=== PATIENT | female | born 1935 | race Hispanic/Latino ===

== ENCOUNTER 2018-12-19 13:14 | Emergency (ER) | payer OTHER ==
--- NOTE | 2018-12-19 15:40 | EDPHYS ---
Physician Documentation [facility] Name: Jaimie Gutierrez Age: 83 yrs Sex: Female : 1935 Arrival Date: 12/19/2018 Time: 13:16 Bed 25 Private MD: Sonal Duncan ED Physician Popeye Arana HPI: 12/19 15:00 This 83 yrs old Female presents to ER via Wheelchair with complaints of Left pm1 Leg Pain. 15:00 The patient presents with pain. The complaints affect the left leg. Context: resulted pm1 from Movement, like bending, getting out of car that she can recall, the patient can fully bear weight, the patient is able to ambulate. Onset: The symptoms/episode began/occurred 6 month(s) ago. Modifying factors: The symptoms are alleviated by typically rest for a few days. the symptoms are aggravated by movement, when she has the pain. Associated signs and symptoms: Pertinent negatives calf tenderness, fever, numbness, swelling, tingling, warmth, weakness. Treatment prior to arrival includes: no previous treatment. Severity of symptoms: in the emergency department the symptoms have resolved, yesterday, a " 0" out of "10". The patient has experienced similar episodes in the past, multiple times. has discussed with Dr. Duncan and diagnosed with possible sciatica. Patient currently pain free. Had left leg pain radiating from hip to left big toe yesterday that resolved with rest. Typically the pain lasts for 3 days. Has been on and off for the past 6 months.. 15:00 No fall injury. pm1 Historical: - Allergies: 13:25 Codeine; tw2 13:25 PENICILLINS; tw2 - Home Meds: 13:25 Omeprazole Oral [Active]; atorvastatin 20 mg oral tab 1 tab once daily [Active]; tw2 lisinopril 10 mg Oral tab 1 tab once daily [Active]; meloxicam 7.5 mg oral tab 1 tab once daily [Active]; - PMHx: 13:25 High Cholesterol; tw2 - PSHx: 13:25 Hysterectomy; left knee surgery; tw2 - Immunization history:: Adult Immunizations. - Social history:: Smoking status: . - Ebola Screening: : Patient denies travel to an Ebola-affected area in the 21 days before illness onset. ROS: 15:00 Constitutional: Negative for fever, chills, and weight loss, Eyes: Negative for injury, pm1 pain, redness, and discharge, ENT: Negative for injury, pain, and discharge, Neck: Negative for injury, pain, and swelling, Cardiovascular: Negative for chest pain, palpitations, and edema, Respiratory: Negative for shortness of breath, cough, wheezing, and pleuritic chest pain, Abdomen/GI: Negative for abdominal pain, nausea, vomiting, diarrhea, and constipation, Back: Negative for injury and pain, : Negative for injury, bleeding, discharge, and swelling. 15:00 Skin: Negative for injury, rash, and discoloration, Neuro: Negative for headache, weakness, numbness, tingling, and seizure. 15:00 MS/extremity: Positive for pain, of the left leg, Negative for decreased range of motion, deformity, ecchymosis. Exam: 15:00 Constitutional: This is a well developed, well nourished patient who is awake, alert, pm1 and in no acute distress. Head/Face: Normocephalic, atraumatic. Eyes: Pupils equal round and reactive to light, extra-ocular motions intact. Lids and lashes normal. Conjunctiva and sclera are non-icteric and not injected. Cornea within normal limits. Periorbital areas with no swelling, redness, or edema. ENT: Nares patent. No nasal discharge, no septal abnormalities noted. Tympanic membranes are normal and external auditory canals are clear. Oropharynx with no redness, swelling, or masses, exudates, or evidence of obstruction, uvula midline. Mucous membranes moist. Neck: Trachea midline, no thyromegaly or masses palpated, and no cervical lymphadenopathy. Supple, full range of motion without nuchal rigidity, or vertebral point tenderness. No Meningismus. Chest/axilla: Normal chest wall appearance and motion. Nontender with no deformity. No lesions are appreciated. Cardiovascular: Regular rate and rhythm with a normal S1 and S2. No gallops, murmurs, or rubs. Normal PMI, no JVD. No pulse deficits. Respiratory: Lungs have equal breath sounds bilaterally, clear to auscultation and percussion. No rales, rhonchi or wheezes noted. No increased work of breathing, no retractions or nasal flaring. Abdomen/GI: Soft, non-tender, with normal bowel sounds. No distension or tympany. No guarding or rebound. No evidence of tenderness throughout. Back: No spinal tenderness. No costovertebral tenderness. Full range of motion. Skin: Warm, dry with normal turgor. Normal color with no rashes, no lesions, and no evidence of cellulitis. MS/ Extremity: Pulses equal, no cyanosis. Neurovascular intact. Full, normal range of motion. 15:00 Neuro: Orientation: is normal, Motor: is normal, moves all fours, Sensation: is normal, no obvious gross deficits. Vital Signs: 13:25 BP 137 / 48; Pulse 87; Resp 17; Temp 97.8(TE); Pulse Ox 95% on R/A; Weight 66.68 kg tw2 (R); Height 5 ft. 5 in. (165.10 cm); Pain 0/10; 15:00 BP 126 / 52; Pulse 68; Resp 18; Pulse Ox 100% on R/A; tl3 16:10 BP 122 / 60; Pulse 68; Resp 18; Pulse Ox 100% on R/A; tl3 13:25 Body Mass Index 24.46 (66.68 kg, 165.10 cm) tw2 13:25 a 10 when it hits tw2 MDM: 13:47 Patient medically screened. pm1 15:37 Data reviewed: vital signs. Data interpreted: Pulse oximetry: on room air is 95 %. pm1 Interpretation: normal. Counseling: I had a detailed discussion with the patient and/or guardian regarding: the historical points, exam findings, and any diagnostic results supporting the discharge/admit diagnosis, radiology results, the need for outpatient follow up, to return to the emergency department if symptoms worsen or persist or if there are any questions or concerns that arise at home. 12/19 14:59 Order name: Extremity Venous Uni Ltd ; Complete Time: 15:51 pm1 Administered Medications: No medications were administered Disposition: 12/20 07:15 Co-signature as Attending Physician, Popeye Arana MD Available for consultation at ps1 all times. . Disposition: 12/19/18 15:39 Discharged to Home. Impression: Pain in left leg. - Condition is Stable. - Discharge Instructions: Musculoskeletal Pain, Sciatica. - Medication Reconciliation Form, Thank You Letter form. - Follow up: Emergency Department; When: As needed; Reason: Worsening of condition. Follow up: Private Physician; When: 2 - 3 days; Reason: Recheck today's complaints, Continuance of care, Re-evaluation by your physician. - Problem is new. - Symptoms have improved. Signatures: Dispatcher [employer] EDMS Tam Suero ABALONE FISHERMAN ABALONE FISHERMAN pm1 Pretty Alba RN RN tw2 Popeye Arana MD MD ps1 Smita Walden RN RN tl3 Corrections: (The following items were deleted from the chart) 12/19 16:13 15:39 12/19/2018 15:39 Discharged to Home. Impression: Pain in left leg. Condition is tl3 Stable. Forms are Medication Reconciliation Form, Thank You Letter, Antibiotic Education, Prescription Opioid Use. Follow up: Emergency Department; When: As needed; Reason: Worsening of condition. Follow up: Private Physician; When: 2 - 3 days; Reason: Recheck today's complaints, Continuance of care, Re-evaluation by your physician. Problem is new. Symptoms have improved. pm1
--- NOTE | 2018-12-19 15:40 | ER ---
Nurse's Notes [facility] Name: Jaimie Gutierrez Age: 83 yrs Sex: Female : 1935 Arrival Date: 12/19/2018 Time: 13:16 Bed 25 Private MD: Sonal Duncan Diagnosis: Pain in left leg Presentation: 12/19 13:22 Presenting complaint: Patient states: i have pain in my LEFT leg and when it hits me it tw2 shoots all the way to my toes, last night my feet were cold and all night my legs were jerking. Transition of care: patient was not received from another setting of care. Onset of symptoms was December 19, 2018. Risk Assessment: Do you want to hurt yourself or someone else? Patient reports no desire to harm self or others. Initial Sepsis Screen: Does the patient meet any 2 criteria? No. Patient's initial sepsis screen is negative. Does the patient have a suspected source of infection? No. Patient's initial sepsis screen is negative. Care prior to arrival: None. 13:22 Method Of Arrival: Wheelchair tw2 13:22 Acuity: ALLISON 3 tw2 13:25 Presenting complaint: Patient states: and it hurts me into my groin area. tw2 Triage Assessment: 13:26 General: Appears in no apparent distress. well groomed, Behavior is calm, cooperative, tw2 appropriate for age. Pain: Complains of pain in left leg. Historical: - Allergies: 13:25 Codeine; tw2 13:25 PENICILLINS; tw2 - Home Meds: 13:25 Omeprazole Oral [Active]; atorvastatin 20 mg oral tab 1 tab once daily [Active]; tw2 lisinopril 10 mg Oral tab 1 tab once daily [Active]; meloxicam 7.5 mg oral tab 1 tab once daily [Active]; - PMHx: 13:25 High Cholesterol; tw2 - PSHx: 13:25 Hysterectomy; left knee surgery; tw2 - Immunization history:: Adult Immunizations. - Social history:: Smoking status: . - Ebola Screening: : Patient denies travel to an Ebola-affected area in the 21 days before illness onset. Screenin:00 Abuse screen: Denies threats or abuse. Nutritional screening: No deficits noted. tl3 Tuberculosis screening: No symptoms or risk factors identified. Fall Risk Ambulatory Aid- Crutches/Cane/Walker (15 pts). Gait- Impaired (20 pts.). Assessment: 13:30 General: Appears in no apparent distress. comfortable, slender, well groomed, well tl3 developed, well nourished, Behavior is calm, cooperative, appropriate for age. Pain: Complains of pain in left leg. Neuro: Level of Consciousness is awake, alert, obeys commands, Oriented to person, place, time, situation, Appropriate for age. Cardiovascular: Heart tones S1 S2 present Patient's skin is warm and dry. Rhythm is regular. Respiratory: Airway is patent Respiratory effort is even, unlabored, Respiratory pattern is regular, symmetrical, Breath sounds are clear bilaterally. GI: No signs and/or symptoms were reported involving the gastrointestinal system. : No signs and/or symptoms were reported regarding the genitourinary system. EENT: No signs and/or symptoms were reported regarding the EENT system. Derm: No signs and/or symptoms reported regarding the dermatologic system. Musculoskeletal: Reports pain in left leg. 15:00 Reassessment: No changes from previously documented assessment. Patient and/or family tl3 updated on plan of care and expected duration. Pain level reassessed. Patient is alert, oriented x 3, equal unlabored respirations, skin warm/dry/pink. no needs at this time. 16:10 Reassessment: Patient appears in no apparent distress at this time. No changes from tl3 previously documented assessment. Patient and/or family updated on plan of care and expected duration. Pain level reassessed. Patient is alert, oriented x 3, equal unlabored respirations, skin warm/dry/pink. pt up for discharge. Vital Signs: 13:25 BP 137 / 48; Pulse 87; Resp 17; Temp 97.8(TE); Pulse Ox 95% on R/A; Weight 66.68 kg tw2 (R); Height 5 ft. 5 in. (165.10 cm); Pain 0/10; 15:00 BP 126 / 52; Pulse 68; Resp 18; Pulse Ox 100% on R/A; tl3 16:10 BP 122 / 60; Pulse 68; Resp 18; Pulse Ox 100% on R/A; tl3 13:25 Body Mass Index 24.46 (66.68 kg, 165.10 cm) tw2 13:25 a 10 when it hits 2 ED Course: 13:16 Patient arrived in ED. ag5 13:17 Sonal Duncan MD is Private Physician. ag5 13:23 Triage completed. tw2 13:23 Arm band placed on. tw2 13:28 Smita Walden, RN is Primary Nurse. tl3 13:47 Tam Suero NP is PHCP. pm1 13:47 Popeye Arana MD is Attending Physician. pm1 14:00 Patient has correct armband on for positive identification. Placed in gown. Bed in low tl3 position. Call light in reach. Side rails up X 1. Adult w/ patient. Pulse ox on. NIBP on. Warm blanket given. 14:00 No provider procedures requiring assistance completed. Patient did not have IV access tl3 during this emergency room visit. 15:37 Extremity Venous Uni Ltd US In Process Unspecified. EDMS Administered Medications: No medications were administered Outcome: 14:00 Discharged to home ambulatory. tl3 14:00 Condition: stable 14:00 Discharge instructions given to patient, family, Instructed on discharge instructions, follow up and referral plans. Demonstrated understanding of instructions, follow-up care. 15:39 Discharge ordered by MD. pm1 16:13 Patient left the ED. tl3 Signatures: Dispatcher [employer] EDMS Tam Suero NP ART MANAGER pm1 Pretty Alba RN RN tw2 Smita Walden, RN RN tl3 Katie Rainey ag5
--- NOTE | 2018-12-19 15:47 | RAD REPORT ---
EXAM DESCRIPTION: US - Extremity Venous Uni Ltd - 12/19/2018 3:35 pm CLINICAL HISTORY: PAIN Leg swelling and edema. COMPARISON: Extremity Venous Uni Ltd dated 05/03/2016 FINDINGS: Left lower extremity venous system was interrogated with Doppler technique. Normal flow, c ompressibility and augmentation was noted. There is no DVT present. IMPRESSION: No evidence of left lower extremity deep venous thrombosis.
[2018-12-19 16:41] VITALS: TEMP 97.8
[2018-12-19 16:42] VITALS: O2SAT 100
[2018-12-19 16:43] VITALS: BP 122/60
== END 2018-12-19 16:13 | disposition home or self-care (01) ==
LOC: ER 13:14
DX: M79.605 Pain in left leg (principal); E78.00 Pure hypercholesterolemia, unspecified; Z88.0 Allergy status to penicillin; Z88.5 Allergy status to narcotic agent
CPT/HCPCS: 93971; 99283

== ENCOUNTER 2020-07-08 18:16 | Emergency (ER) | payer OTHER ==
[2020-07-08 18:52] LABS: Basophils % 0.6 % (0-1.3); Hematocrit 37.3 % (36.0-45.0); Lymphocytes % 22.9 % (15.3-44.8); MPV 8.9 fL (7.6-11.3); RBC Red Blood Cell Count 4.27 M/uL (3.86-4.86)
[2020-07-08 18:53] LABS: Protime INR 0.99
[2020-07-08 19:09] LABS: ALT/SGPT 28 U/L (12-78); AST/SGOT 19 U/L (15-37); Albumin 4.1 g/dL (3.4-5.0); Alkaline Phosphatase 112 U/L (45-117); BUN Blood Urea Nitrogen 14 mg/dL (7-18); Bicarbonate 27 mmol/L (21-32); Bilirubin Direct 0.1 mg/dL (0-0.2); Bilirubin Total 0.6 mg/dL (0.2-1.0); Glucose Level 122 mg/dL (74-106); Lipase 193 U/L (73-393); Magnesium 2.4 mg/dL (1.8-2.4); NT PRO-BNP 122 pg/mL (<450); Protein, Total 7.8 g/dL (6.4-8.2); Sodium Level 137 mmol/L (136-145); Troponin (Emerg Dept Use Only) < 0.02 ng/mL (0.0-0.045)
[2020-07-08] MEDS ORDERED: NA CHLORIDE 0.9% 250 ML ONE (19:30)
[2020-07-08] MEDS ORDERED: DICYCLOMINE HCL 10 MG CAP ONE (19:30)
[2020-07-08] MEDS ORDERED: METOCLOPRAMIDE 10 MG/2mL INJ ONE (19:30)
--- NOTE | 2020-07-08 19:37 | RAD REPORT ---
EXAM DESCRIPTION: RAD - Chest Single View - 07/08/2020 6:56 pm CLINICAL HISTORY: epigastric pain Chest pain. COMPARISON: Chest Single View dated 05/03/2016; CHEST SINGLE VIEW dated 07/30/2013; CHEST PA AND LAT 2 VIEW dated 05/17/2006 FINDINGS: Portable technique limits examination quality. The lungs are mildly emphysematous but grossly clear. The heart is normal in size. No displaced fract ures. IMPRESSION: No acute intrathoracic process suspected.
--- NOTE | 2020-07-08 19:55 | RAD REPORT ---
EXAM DESCRIPTION: US - Abdomen Exam Limited - 07/08/2020 7:47 pm CLINICAL HISTORY: ABD PAIN COMPARISON: Abdomen Exam Complete dated 11/19/2019 FINDINGS: The gallbladder demonstrates no gallstones. No pericholecystic fluid or gallbladder wall t hickening. The common bile duct is normal measuring 4 mm. The liver demonstrates no findings of intrahepatic biliary dilatation. IMPRESSION: Unremarkable examination.
--- NOTE | 2020-07-08 20:11 | RAD REPORT ---
EXAM DESCRIPTION: CT - Angio Aorta For Dissection - 07/08/2020 7:56 pm CLINICAL HISTORY: Chest pain radiating to the back. epigastric pain, back pain, lower abdominal pain COMPARISON: No comparisons TECHNIQUE: CT angiography of the aorta was performed with MIPs. All CT scans are performed using dose optimization technique as appropriate and may include automated exposure control or mA/KV adjustment according to patient size. FINDINGS: A left aortic arch is present with normal branching pattern of the great vessels.No acute aortic finding is seen such as aneurysm, penetrating ulcer or dissection. The celiac axis, SMA, ELSIE and renal arteries are patent. No evidence of pulmonary embolism. The lungs are mildly emphysematous but clear. Multiple liver cysts are noted.Small enhancing lesion is seen in the anterior right lobe measuring 10 mm, favored to represent a small hemangioma. No aggressive liver lesion or biliary dilatation. The s pleen is intact.The spleen, pancreas, adrenal glands and kidneys are within normal limits for arteria l phase imaging. No bowel obstruction, free fluid or abscess.Colonic diverticulosis is seen without diverticulitis.No pathologic enlarged lymphadenopathy identified. Mild lumbar degenerative changes. IMPRESSION: No acute aortic finding is demonstrated.
--- NOTE | 2020-07-08 22:50 | EDPHYS ---
Physician Documentation [facility] Name: Jaimie Gutierrez Age: 85 yrs Sex: Female : 1935 Arrival Date: 07/08/2020 Time: 18:18 Bed 17 Private MD: David Fam E ED Physician Jose Mendoza HPI: 07/08 18:49 This 85 yrs old Female presents to ER via Ambulatory with complaints of jmm Abdominal Pain. 18:49 The patient presents with abdominal pain in the epigastric area. Onset: The jmm symptoms/episode began/occurred gradually, 3 hour(s) ago. The symptoms do not radiate. Associated signs and symptoms: Pertinent negatives: nausea and vomiting, diarrhea. The symptoms are described as crampy. Modifying factors: The symptoms are alleviated by nothing, the symptoms are aggravated by nothing. The patient has not experienced similar symptoms in the past. This is an 85 year old female with a history of hlp, htn that presents to the ED with complaints of lower abdominal pain beginning in the lower abdominal pain which then radiated up to the epigastric region. Patient states this occurred after eating chicken. Patient deescribes the discomfort as a sense of fullness. Patient denies chest pain. Historical: - Allergies: 18:26 Codeine; ca1 18:26 PENICILLINS; ca1 - PMHx: 18:26 High Cholesterol; ca1 18:26 Hypertension; ca1 - PSHx: 18:26 Hysterectomy; ca1 - Immunization history:: Adult Immunizations up to date. - Social history:: Smoking status: Patient denies any tobacco usage or history of. ROS: 18:49 Constitutional: Negative for fever, chills, and weight loss, Cardiovascular: Negative jmm for chest pain, palpitations, and edema, Respiratory: Negative for shortness of breath, cough, wheezing, and pleuritic chest pain. 18:49 Abdomen/GI: Positive for abdominal pain. 18:49 All other systems are negative. Exam: 18:49 Constitutional: This is a well developed, well nourished patient who is awake, alert, jmm and in no acute distress. Head/Face: atraumatic. Eyes: EOMI, no conjunctival erythema appreciated ENT: Moist Mucus Membranes Neck: Trachea midline, Supple Chest/axilla: Normal chest wall appearance and motion. Cardiovascular: Regular rate and rhythm. No edema appreciated Respiratory: Normal respirations, no respiratory distress appreciated 18:49 Back: Normal ROM Skin: General appearance color normal MS/ Extremity: Moves all extremities, no obvious deformities appreciated, no edema noted to the lower extremities Neuro: Awake and alert, normal gait Psych: Behavior is normal, Mood is normal, Patient is cooperative and pleasant 18:49 Abdomen/GI: Inspection: abdomen appears normal, Bowel sounds: normal, Palpation: soft, mild abdominal tenderness, in the epigastric area. Vital Signs: 18:23 BP 188 / 71; Pulse 67; Resp 16 S; Temp 97.7; Pulse Ox 100% on R/A; Weight 67.59 kg (R); ca1 Height 5 ft. 5 in. (165.10 cm); Pain 10/10; 19:30 BP 167 / 77; Pulse 61; Resp 16; Pulse Ox 100% on R/A; vc 20:30 BP 145 / 48; Pulse 68; Resp 20; Pulse Ox 99% on R/A; vc 21:30 BP 132 / 52; Pulse 78; Resp 18; Pulse Ox 97% on R/A; vc 18:23 Body Mass Index 24.79 (67.59 kg, 165.10 cm) ca1 MDM: 18:40 Patient medically screened. clau 22:47 Data reviewed: vital signs, nurses notes. Counseling: I had a detailed discussion with mick the patient and/or guardian regarding: the historical points, exam findings, and any diagnostic results supporting the discharge/admit diagnosis, lab results, radiology results, the need for outpatient follow up, to return to the emergency department if symptoms worsen or persist or if there are any questions or concerns that arise at home. ED course: Patient is alert and non toxic in appearance in the ED. Patient advised to follow up with pcp for reexamination. Patient is otherwise given strict return precautions. Patient understood and agrees with the plan of care. . 07/08 18:28 Order name: Basic Metabolic Panel; Complete Time: : [facility] 07/08 18:28 Order name: CBC with Diff; Complete Time: 18: [facility] 07/08 18:28 Order name: LFT's; Complete Time: : [facility] 07/08 18:28 Order name: Magnesium; Complete Time: : [facility] 07/08 18:28 Order name: NT PRO-BNP; Complete Time: 19:09 [facility] 07/08 18:28 Order name: PT-INR; Complete Time: 18:55 [facility] 07/08 18:28 Order name: Troponin (emerg Dept Use Only); Complete Time: 19:09 [facility] 07/08 18:28 Order name: XRAY Chest (1 view); Complete Time: 19:51 [facility] 07/08 18:28 Order name: Lipase; Complete Time: 19:09 [facility] 07/08 19:11 Order name: US Abdomen Limited; Complete Time: 20:03 [facility] 07/08 19:12 Order name: CT Aorta for Dissection; Complete Time: 20:28 [facility] 07/08 21:35 Order name: Troponin (emerg Dept Use Only); Complete Time: 22:47 [facility] 07/08 18:28 Order name: EKG; Complete Time: 18:29 [facility] 07/08 18:28 Order name: Cardiac monitoring; Complete Time: 19:25 [facility] 07/08 18:28 Order name: EKG - Nurse/Tech; Complete Time: 19:34 [facility] 07/08 18:28 Order name: IV Saline Lock; Complete Time: 18:37 [facility] 07/08 18:28 Order name: Labs collected and sent; Complete Time: 18:36 [facility] 07/08 18:28 Order name: O2 Per Protocol; Complete Time: 18:37 [facility] 07/08 18:28 Order name: O2 Sat Monitoring; Complete Time: 18:37 jm Administered Medications: 19:17 CANCELLED (Duplicate Order): Bentyl 20 mg IM once [facility] 19:24 Drug: NS 0.9% 250 ml Route: IV; Rate: bolus; Site: right antecubital; vc 20:00 Follow up: IV Status: Completed infusion; IV Intake: 250ml vc 19:24 Drug: Bentyl 10 mg Route: PO; vc 22:48 Follow up: Response: No adverse reaction; Pain is decreased vc 19:25 Drug: Reglan 10 mg Route: IVP; Site: right antecubital; vc 22:48 Follow up: Response: No adverse reaction; Nausea is decreased vc Disposition: 07/09 07:36 Co-signature as Attending Physician, Jose Mendoza MD. rn Disposition: 07/08/20 22:49 Discharged to Home. Impression: Epigastric pain. - Condition is Stable. - Discharge Instructions: Abdominal Pain, Adult. - Prescriptions for Bentyl 20 mg Oral Tablet - take 2 tablet by ORAL route every 6 hours As needed; 40 tablet. Pepcid 20 mg Oral Tablet - take 1 tablet by ORAL route every 12 hours for 10 days; 20 tablet. - Medication Reconciliation Form, Thank You Letter, Antibiotic Education, Prescription Opioid Use form. - Follow up: David Fam MD; When: 2 - 3 days; Reason: Recheck today's complaints, Continuance of care, Re-evaluation by your physician. Signatures: Dispatcher [employer] EDMS James Antunez PA PA jmm Nieto, Roman, MD MD rn John, Smita, RN RN ca1 Irene Myrick RN RN vc Corrections: (The following items were deleted from the chart) 07/08 19:17 19:16 Bentyl 20 mg IM once ordered. mick barton 23:03 22:49 07/08/2020 22:49 Discharged to Home. Impression: Epigastric pain. Condition is vc Stable. Forms are Medication Reconciliation Form, Thank You Letter, Antibiotic Education, Prescription Opioid Use. Follow up: David Fam; When: 2 - 3 days; Reason: Recheck today's complaints, Continuance of care, Re-evaluation by your physician. mick
--- NOTE | 2020-07-08 22:50 | ER ---
Nurse's Notes [facility] Name: Jaimie Gutierrez Age: 85 yrs Sex: Female : 1935 Arrival Date: 07/08/2020 Time: 18:18 Bed 17 Private MD: David Fam E Diagnosis: Epigastric pain Presentation: 07/08 18:23 Chief complaint: Patient states: Upper abdominal pain started at [id number] today. ca1 Denies N/V. States, " I feel like I needed to burp but can't". Coronavirus screen: Client denies travel out of the [place] in the last 14 days. At this time, the client does not indicate any symptoms associated with coronavirus-19. Ebola Screen: Patient negative for fever greater than or equal to 101.5 degrees Fahrenheit, and additional compatible Ebola Virus Disease symptoms Patient denies exposure to infectious person. Patient denies travel to an Ebola-affected area in the 21 days before illness onset. No symptoms or risks identified at this time. Initial Sepsis Screen: Does the patient meet any 2 criteria? No. Patient's initial sepsis screen is negative. Does the patient have a suspected source of infection? No. Patient's initial sepsis screen is negative. Risk Assessment: Do you want to hurt yourself or someone else? Patient reports no desire to harm self or others. Onset of symptoms was July 08, 2020. 18:23 Method Of Arrival: Ambulatory ca1 18:23 Acuity: ALLISON 3 ca1 Triage Assessment: 19:00 General: Appears in no apparent distress. uncomfortable, Behavior is cooperative, vc appropriate for age, anxious. Pain: Denies pain. Pain: Denies pain. Complains of pain in epigastric area Pain does not radiate. Pain currently is 10 out of 10 on a pain scale. Quality of pain is described as sharp, stabbing, Pain began gradually, 1 hour ago. Is continuous. GI: Reports upper abdominal pain, nausea. Historical: - Allergies: 18:26 Codeine; ca1 18:26 PENICILLINS; ca1 - PMHx: 18:26 High Cholesterol; ca1 18:26 Hypertension; ca1 - PSHx: 18:26 Hysterectomy; ca1 - Immunization history:: Adult Immunizations up to date. - Social history:: Smoking status: Patient denies any tobacco usage or history of. Screenin:00 Abuse screen: Denies threats or abuse. Nutritional screening: No deficits noted. vc Tuberculosis screening: No symptoms or risk factors identified. Fall Risk None identified. Assessment: 19:00 General: Appears in no apparent distress. uncomfortable, Behavior is cooperative, vc appropriate for age, anxious. Pain: Complains of pain in epigastric area. Neuro: Level of Consciousness is awake, alert, obeys commands, Oriented to person, place, time, situation, Appropriate for age. Cardiovascular: Capillary refill < 3 seconds Patient's skin is warm and dry. Respiratory: Reports shortness of breath at rest Airway is patent Respiratory effort is even, unlabored, Respiratory pattern is regular, symmetrical. : No signs and/or symptoms were reported regarding the genitourinary system. Derm: Skin is intact, is healthy with good turgor, Skin temperature is warm. 20:00 GI: Bowel sounds present X 4 quads. Abd is soft Abdomen is tender to palpation. vc 20:00 Reassessment: Patient appears in no apparent distress at this time. Patient and/or vc family updated on plan of care and expected duration. Pain level reassessed. Patient states symptoms have not improved. 21:00 Reassessment: Patient appears in no apparent distress at this time. Patient and/or vc family updated on plan of care and expected duration. Pain level reassessed. Patient is alert, oriented x 3, equal unlabored respirations, skin warm/dry/pink. Patient states symptoms have improved. 21:45 Reassessment: pt family contacted at [phone] for updated, pt family reports sg understanding, awaiting pt to be dispo to home. 22:00 Reassessment: Patient appears in no apparent distress at this time. Patient and/or vc family updated on plan of care and expected duration. Pain level reassessed. Patient is alert, oriented x 3, equal unlabored respirations, skin warm/dry/pink. Patient states feeling better. Patient states symptoms have improved. 22:55 Reassessment: Patient appears in no apparent distress at this time. Patient and/or vc family updated on plan of care and expected duration. Pain level reassessed. Patient is alert, oriented x 3, equal unlabored respirations, skin warm/dry/pink. Patient denies pain at this time. Patient states feeling better. Patient states symptoms have improved. Vital Signs: 18:23 BP 188 / 71; Pulse 67; Resp 16 S; Temp 97.7; Pulse Ox 100% on R/A; Weight 67.59 kg (R); ca1 Height 5 ft. 5 in. (165.10 cm); Pain 10/10; 19:30 BP 167 / 77; Pulse 61; Resp 16; Pulse Ox 100% on R/A; vc 20:30 BP 145 / 48; Pulse 68; Resp 20; Pulse Ox 99% on R/A; vc 21:30 BP 132 / 52; Pulse 78; Resp 18; Pulse Ox 97% on R/A; vc 18:23 Body Mass Index 24.79 (67.59 kg, 165.10 cm) ca1 ED Course: 18:18 Patient arrived in ED. ag5 18:18 David Fam MD is Private Physician. ag5 18:25 Triage completed. ca1 18:26 Arm band placed on right wrist. ca1 18:27 James Antunez PA is PHCP. jmm 18:27 Jose Mendoza MD is Attending Physician. jmm 18:34 No provider procedures requiring assistance completed. Initial lab(s) drawn, by ak, ca1 sent to lab. Inserted saline lock: 20 gauge in right antecubital area, using aseptic technique. Blood collected. 18:56 XRAY Chest (1 view) In Process Unspecified. EDMS 19:00 Patient has correct armband on for positive identification. Placed in gown. Bed in low vc position. Call light in reach. internet database specialist on. Pulse ox on. NIBP on. 19:12 Irene Myrick, RN is Primary Nurse. vc 19:47 US Abdomen Limited In Process Unspecified. EDMS 19:56 CT Aorta for Dissection In Process Unspecified. EDMS 22:48 David Fam MD is Referral Physician. jmm 23:02 IV discontinued, intact, bleeding controlled, No redness/swelling at site. Pressure vc dressing applied. Administered Medications: 19:17 CANCELLED (Duplicate Order): Bentyl 20 mg IM once jmm 19:24 Drug: NS 0.9% 250 ml Route: IV; Rate: bolus; Site: right antecubital; vc 20:00 Follow up: IV Status: Completed infusion; IV Intake: 250ml vc 19:24 Drug: Bentyl 10 mg Route: PO; vc 22:48 Follow up: Response: No adverse reaction; Pain is decreased vc 19:25 Drug: Reglan 10 mg Route: IVP; Site: right antecubital; vc 22:48 Follow up: Response: No adverse reaction; Nausea is decreased vc Intake: 20:00 IV: 250ml; Total: 250ml. vc Outcome: 22:49 Discharge ordered by . mick 23:02 Discharged to home ambulatory. vc 23:02 Condition: good 23:02 Discharge instructions given to patient, Instructed on discharge instructions, follow up and referral plans. no drinking with medication, no driving heavy equipment, medication usage, Demonstrated understanding of instructions, follow-up care, medications, Prescriptions given X 2. 23:03 Patient left the ED. vc Signatures: Dispatcher [employer] EDMS Camilo Main RN RN James James PA PA jmm Acob, Cheryl, RN RN ca1 Katie Rainey 5 Irene Myrick RN RN vc
[2020-07-08 23:07] VITALS: TEMP 97.7
[2020-07-08 23:11] VITALS: BP 132/52; O2SAT 97
--- NOTE | 2020-07-09 05:56 | EKG ---
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
== END 2020-07-08 23:03 | disposition home or self-care (01) ==
LOC: ER 18:16
DX: R10.13 Epigastric pain (principal); I10 Essential (primary) hypertension; Z88.0 Allergy status to penicillin; Z88.5 Allergy status to narcotic agent
CPT/HCPCS: 96365; 93005; 85025; 80048; 36415; 83735; 85610; 80076; 84484 ×2; 83690; 83880; 71275; 74175; 71045; 76705; 96375; 99284; Q9967; J2765; J7050

== ENCOUNTER 2022-08-19 10:00 | Emergency (ER) | payer MEDICARE, OTHER ==
--- OUTSIDE RECORDS SUMMARY | 2022-08-19 10:04 | XMS REPORT | Continuity of Care Document ---
:1935 Author Organization [facility] t Address [address] [place]. [address] [place] [id number] Care Team Providers Name Role Phone David Fam Attending Clinician Unavailable Josefa-Mbayo_A_AH Attending Clinician Unavailable Josefa-Mbayo_A_AH Admitting Clinician Unavailable Payers Payer Name Policy Type Policy Number Effective Date Expiration Date S [facility] [id number] 2021 (MEDICARE 00:00:00 REPLACEMENT HMO) [employer] [place] - [id number] [facility] (MEDICARE 00:00:00 REPLACEMENT/[employer] - HMO) Problems This patient has no known problems. Allergies, Adverse Reactions, Alerts This patient has no known allergies or adverse reactions. Medications This patient has no known medications. Procedures This patient has no known procedures. Encounters Start End Encounter Admission Attending Care Care Encounter Source Date/Time Date/Time Type Type Clinicians Facility Department ID 2022-05-10 Outpatient Fam, [facility] [id number] Common 14:03:01 David [id number] [facility] 2022-05-25 2022-05-25 Outpatient DMG DMG [id number] [facility] 2022-05-13 2022-05-13 Outpatient DMG DMG [id number] [facility] 03:15:00 03:15:00 [facility] l Group 2021-12-31 2021-12-31 Outpatient DMG DMG [id number] [facility] 09:01:00 09:01:00 Med[facility] l Group 2021-12-27 2021-12-27 Outpatient DMG DMG [id number] [facility] 09:01:00 09:01:00 Med[facility] l Group 2019-12-18 2019-12-18 Outpatient Josefa-Mbayo VFP VFP [phone] [facility] 07:24:00 07:24:00 _A_AH [id number] Family Practic e 2019-12-18 2019-12-18 Outpatient Josefa-Mbayo VFP VFP [phone] [facility] 07:24:00 07:24:00 _A_AH [id number] Family Practic e 2019-12-18 2019-12-18 Outpatient Josefa-Mbayo VFP VFP [phone] [facility] 07:24:00 07:24:00 _A_AH [id number] Family Practic e 2019-12-18 2019-12-18 Outpatient Josefa-Mbayo VFP VFP [phone] [facility] 07:24:00 07:24:00 _A_AH [id number] Family Practic e Results This patient has no known results.
[2022-08-19] MEDS ORDERED: NA CHLORIDE 0.9% 1,000 ML ONE (10:57)
[2022-08-19 11:23] LABS: Absolute Lymphocytes (CBC) 0.9 K/uL (0.7-4.9); Hematocrit 34.9 % (36.0-45.0); Lymphocytes % 10.7 % (15.3-44.8); MCV 88.9 fL (80-100); MPV 7.8 fL (7.6-11.3); RBC Red Blood Cell Count 3.92 M/uL (3.86-4.86)
[2022-08-19 11:28] LABS: Protime INR 1.04
[2022-08-19 11:58] LABS: Bilirubin Direct 0.1 mg/dL (0-0.2); Bilirubin Total 0.4 mg/dL (0.2-1.0); Magnesium 2.2 mg/dL (1.8-2.4); Potassium 3.8 mmol/L (3.5-5.1); Protein, Total 7.6 g/dL (6.4-8.2); Troponin High Sensitivity 7.8 pg/mL (<58.9)
[2022-08-19 12:17] LABS: Urine Blood 2+ (Negative); Urine Glucose Negative (Negative); Urine Protein Negative (Negative); Urine Specific Gravity 1.025 (1.005-1.030); Urine pH 5.5 (5.0-7.0)
[2022-08-19 12:23] LABS: Urine Bacteria <20 /HPF (<20); Urine Mucus Slight /HPF (None Seen); Urine RBC <5 /HPF (None Seen)
--- NOTE | 2022-08-19 12:57 | RAD REPORT ---
EXAM DESCRIPTION: RAD - Chest Single View - 08/19/2022 11:27 am CLINICAL HISTORY: COUGH Chest pain. COMPARISON: Chest Single View dated 07/08/2020; Chest Single View dated 05/03/2016; CHEST SINGLE VIEW da liza 07/30/2013; CHEST PA AND LAT 2 VIEW dated 05/17/2006 FINDINGS: Portable technique limits examination quality. The lungs are emphysematous but grossly clear. The heart is normal in size. No displaced fractures. IMPRESSION: COPD.
[2022-08-19] MEDS ORDERED: levoFLOXacin 250 MG TAB ONE (13:06)
[2022-08-19] MEDS ORDERED: CEFTRIAXONE 1000 MG/VIAL ONE (13:07)
[2022-08-19] MEDS ORDERED: NA CHLORIDE 0.9% 50 ML IV ONE ×2 (13:07→15:18)
--- NOTE | 2022-08-19 13:31 | RAD REPORT ---
EXAM DESCRIPTION: CT - Head Brain Wo Cont - 08/19/2022 1:20 pm CLINICAL HISTORY: HEADACHE COMPARISON: Stone Protocol dated 08/19/2022 TECHNIQUE: Axial 5 mm thick images of the head were obtained without IV contrast. All CT scans are performed using dose optimization technique as appropriate and may include automated exposure control or mA/KV adjustment according to patient size. FINDINGS: No intracranial hemorrhage, mass, edema or shift of mid-line structures. No acute infarcti on changes seen. No abnormal extra-axial fluid collections. Atrophy is present, mild for age and prim arily bifrontal. Ventricles are in proportion to the volume loss. Chronic ischemic changes mild. Dens e arterial tree calcifications are present. Mastoid air cells and visualized portions of the paranasal sinuses are clear. No acute bony findings. IMPRESSION: Negative non-contrast CT head examination for acute finding.
--- NOTE | 2022-08-19 13:37 | RAD REPORT ---
EXAM DESCRIPTION: CT - Stone Protocol - 08/19/2022 1:20 pm CLINICAL HISTORY: Flank pain, kidney stone suspected COMPARISON: Abdomen Pelvis W Contrast dated 05/03/2016 TECHNIQUE: Axial 3 mm thick images were obtained without oral or IV contrast. The yodji-ny-efts span s the entirety of the system including uppermost abdomen and lung bases. All CT scans are performed using dose optimization technique as appropriate and may include automated exposure control or mA/KV adjustment according to patient size. FINDINGS: No hydronephrosis is present and no obstructing ureteral calculi. No nonobstructing renal calculi. No suspicious renal masses. Isodense masses and pyelonephritis are not excluded on a stone p rotocol CT scan. No significant adrenal finding. No urinary bladder suspicious finding. Several round fluid attenuation masses are present in the left lobe and anterior right lobe. These carballo ve all shown enlargement since 2016 but continue to show benign simple cyst characteristics. A worris ome liver finding is not seen. Pancreas and spleen without suspicious finding. No gallbladder or bili pascual tree abnormality identified. No suspicious bowel findings. Fluid, air and fluid are present in the stomach pooling in the fundus. Elongated appendix is normal. An active GI process is not seen. Rectum is dilated to 6 cm by stool. P elvic floor laxity is present. No hernia, mass or bulky lymphadenopathy noted. No free air, free fluid or inflammatory stranding. Disc and bone degenerative changes are present. L4-5 central spinal stenosis present from facet hyper trophy, ligamentous thickening disc bulge and endplate spurring. L3-4 is borderline stenotic due to s imilar processes. IMPRESSION: No hydronephrosis, obstructing calculus or acute finding identified. Isodense masses and pyelonephritis are not excluded on stone protocol technique. Additional nonacute findings are detailed in the body of the report.
[2022-08-19] MEDS ORDERED: ASPIRIN 81 MG CHEWABLE TABLET ONE (15:08)
[2022-08-19] MEDS ORDERED: FOLIC ACID 5 MG/ML VIAL ONE (15:13)
--- NOTE | 2022-08-19 15:37 | EDPHYS ---
Physician Documentation [facility] Name: Jaimie Gutierrez Age: 87 yrs Sex: Female : 1935 Arrival Date: 08/19/2022 Time: 10:02 Bed 13 Private MD: David Fam E ED Physician Micha Haney HPI: 08/19 14:42 This 87 yrs old Female presents to ER via Ambulatory with complaints of yaneth Doesn't Feel Right, shaky after flu shot yesterday. 14:42 The patient complains of pain to the top of head, forehead, left frontal area and left yaneth side of the back of head. Historical: - Allergies: 10:31 PENICILLINS; iw 10:31 Codeine; iw - PMHx: 10:31 High Cholesterol; Hypertension; iw - Immunization history:: Adult Immunizations up to date. - Social history:: Smoking status: Patient denies any tobacco usage or history of. ROS: 15:17 Constitutional: Negative for fever, chills, and weight loss, Eyes: Negative for injury, yaneth pain, redness, and discharge, ENT: Negative for injury, pain, and discharge, Neck: Negative for injury, pain, and swelling, Cardiovascular: Negative for chest pain, palpitations, and edema, Respiratory: Negative for shortness of breath, cough, wheezing, and pleuritic chest pain, Abdomen/GI: Negative for abdominal pain, nausea, vomiting, diarrhea, and constipation, Back: Negative for injury and pain, : Negative for injury, bleeding, discharge, and swelling, MS/Extremity: Negative for injury and deformity, Skin: Negative for injury, rash, and discoloration, Psych: Negative for depression, anxiety, suicide ideation, homicidal ideation, and hallucinations, Allergy/Immunology: Negative for hives, rash, and allergies, Endocrine: Negative for neck swelling, polydipsia, polyuria, polyphagia, and marked weight changes, Hematologic/Lymphatic: Negative for swollen nodes, abnormal bleeding, and unusual bruising. 15:17 Neuro: Positive for dizziness, weakness, shaking all over, both arms. Exam: 15:17 Constitutional: This is a well developed, well nourished patient who is awake, alert, yaneth and in no acute distress. Head/Face: Normocephalic, atraumatic. Eyes: Pupils equal round and reactive to light, extra-ocular motions intact. Lids and lashes normal. Conjunctiva and sclera are non-icteric and not injected. Cornea within normal limits. Periorbital areas with no swelling, redness, or edema. ENT: Nares patent. No nasal discharge, no septal abnormalities noted. Tympanic membranes are normal and external auditory canals are clear. Oropharynx with no redness, swelling, or masses, exudates, or evidence of obstruction, uvula midline. Mucous membranes moist. Neck: Trachea midline, no thyromegaly or masses palpated, and no cervical lymphadenopathy. Supple, full range of motion without nuchal rigidity, or vertebral point tenderness. No Meningismus. Chest/axilla: Normal chest wall appearance and motion. Nontender with no deformity. No lesions are appreciated. Cardiovascular: Regular rate and rhythm with a normal S1 and S2. No gallops, murmurs, or rubs. Normal PMI, no JVD. No pulse deficits. Respiratory: Lungs have equal breath sounds bilaterally, clear to auscultation and percussion. No rales, rhonchi or wheezes noted. No increased work of breathing, no retractions or nasal flaring. Abdomen/GI: Soft, non-tender, with normal bowel sounds. No distension or tympany. No guarding or rebound. No evidence of tenderness throughout. Back: No spinal tenderness. No costovertebral tenderness. Full range of motion. Skin: Warm, dry with normal turgor. Normal color with no rashes, no lesions, and no evidence of cellulitis. MS/ Extremity: Pulses equal, no cyanosis. Neurovascular intact. Full, normal range of motion. Neuro: Awake and alert, GCS 15, oriented to person, place, time, and situation. Cranial nerves II-XII grossly intact. Motor strength 5/5 in all extremities. Sensory grossly intact. Cerebellar exam normal. Normal gait. Psych: Awake, alert, with orientation to person, place and time. Behavior, mood, and affect are within normal limits. 15:17 ECG was reviewed by the Attending Physician. 15:37 Musculoskeletal/extremity: DVT Exam: No signs of deep vein thrombosis. no pain, no yaneth swelling, no tenderness, negative Homans' sign noted on exam, no appreciated bluish discoloration, no erythema, no increased warmth. Vital Signs: 10:28 BP 173 / 62; Pulse 74; Resp 16; Temp 98.8; Pulse Ox 100% ; Weight 63.5 kg; Height 5 ft. iw 5 in. (165.10 cm); Pain 8/10; 11:30 BP 157 / 48; Pulse 60; Resp 16; Pulse Ox 100% ; db 12:00 BP 147 / 47; Pulse 57; Resp 16; Pulse Ox 100% on R/A; db 13:04 BP 134 / 58; Pulse 60; Resp 16; Pulse Ox 100% ; db 16:07 BP 152 / 51; Pulse 78; Resp 16; Pulse Ox 98% on R/A; iw 10:28 Body Mass Index 23.30 (63.50 kg, 165.10 cm) iw NIH Stroke Scale Scores: 15:17 NIHSS Score: 0 yaneth Rosanna Coma Score: 15:20 Eye Response: spontaneous(4). Verbal Response: oriented(5). Motor Response: obeys yaneth commands(6). Total: 15. MDM: 10:37 Patient medically screened. yaneth 15:20 Differential diagnosis: cluster headache, cerebral vascular accident, hypertensive yaneth headache, hyponatremia, neoplasm, sinusitis, subarachnoid bleed, subdural hematoma, temporal arteritis, tension headache, traumatic injuries, trigeminal neuralgia, vasomotor headache. Differential Diagnosis altered mental status. Differential diagnosis: cardiac arrhythmia, CVA, generalized weakness, head injury, hypovolemia, idiopathic dizziness, near-syncope, TIA, vertigo. Data reviewed: vital signs, nurses notes, lab test result(s), EKG, radiologic studies, CT scan, plain films. Data interpreted: nurse monitoring: rate is 60 beats/min, rhythm is regular, Pulse oximetry: on room air is 100 %. Test interpretation: by ED physician or midlevel provider: ECG, plain radiologic studies. Counseling: I had a detailed discussion with the patient and/or guardian regarding: the historical points, exam findings, and any diagnostic results supporting the discharge/admit diagnosis, lab results, radiology results, the need for outpatient follow up, for definitive care, a family practitioner, a neurologist. 08/19 10:40 Order name: Basic Metabolic Panel; Complete Time: 12:46 yaneth 08/19 10:40 Order name: CBC with Diff; Complete Time: 12:46 yaneth 08/19 10:40 Order name: LFT's; Complete Time: 12:46 [facility] 08/19 10:40 Order name: Magnesium; Complete Time: 12:46 [facility] 08/19 10:40 Order name: NT PRO-BNP; Complete Time: 12:46 [facility] 08/19 10:40 Order name: PT-INR; Complete Time: 12:46 [facility] 08/19 10:40 Order name: Troponin HS; Complete Time: 12:46 08/19 10:40 Order name: XRAY Chest (1 view); Complete Time: 14:20 [facility] 08/19 10:40 Order name: Urine Microscopic Only; Complete Time: 12:46 [facility] 08/19 10:40 Order name: Lipase; Complete Time: 12:46 [facility] 08/19 12:17 Order name: Urine Dipstick-Ancillary; Complete Time: 12:46 [facility]IN 08/19 12:50 Order name: CT Stone Protocol [facility] 08/19 12:50 Order name: Urine Culture yaneth 08/19 13:53 Order name: Urine Culture [facility] 08/19 10:40 Order name: EKG; Complete Time: 10:41 [facility] 08/19 10:40 Order name: Cardiac monitoring; Complete Time: 11:22 [facility] 08/19 10:40 Order name: EKG - Nurse/Tech; Complete Time: 11:22 [facility] 08/19 10:40 Order name: IV Saline Lock; Complete Time: 11:22 [facility] 08/19 10:40 Order name: Labs collected and sent; Complete Time: 11:22 [facility] 08/19 10:40 Order name: O2 Per Protocol; Complete Time: 11:22 [facility] 08/19 10:40 Order name: O2 Sat Monitoring; Complete Time: 11:22 [facility] 08/19 10:40 Order name: Urine Dipstick-Ancillary (obtain specimen); Complete Time: 13:34 [facility] 08/19 13:31 Order name: CT; Complete Time: 14:20 EDMS 08/19 13:39 Order name: CT; Complete Time: 14:20 EDMS EC:17 Rate is 64 beats/min. Rhythm is regular. QRS [place] is Normal. [place] interval is normal. QRS yaneth interval is normal. QT interval is normal. No Q waves. T waves are Normal. No ST changes noted. Clinical impression: NSR w/ Non-specific ST/T Changes and No evidence of ischemia. Interpreted by me. Reviewed by me. Administered Medications: 11:20 Drug: NS 0.9% 500 ml Route: IV; Rate: bolus; Site: right antecubital; db 11:58 Follow up: IV Status: Completed infusion; IV Intake: 500ml db 11:59 Follow up: Response: No adverse reaction db 13:20 Follow up: Response: No adverse reaction db 11:58 Drug: NS 0.9% 1000 ml Route: IV; Rate: 125 ml/hr; Site: right antecubital; db 16:10 Follow up: IV Status: Order to discontinue infusion iw 13:30 Drug: Rocephin (cefTRIAXone) 1 grams Route: IV; Rate: per protocol; Site: right db antecubital; 14:05 Follow up: Response: No adverse reaction; IV Status: Completed infusion; IV Intake: 50mldb 13:30 Drug: LevOfloxacin 500 mg Route: PO; db 14:05 Follow up: Response: No adverse reaction db 15:21 Drug: Aspirin Chewable Tablet 324 mg Route: PO; db 16:09 Follow up: Response: No adverse reaction iw 15:21 Drug: foLIC Acid 1 mg Route: IVPB; Site: right antecubital; db 16:09 Follow up: IV Status: Completed infusion iw Disposition Summary: 08/19/22 15:36 Discharge Ordered Location: Home yaneth Problem: new yaneth Symptoms: have improved yaneth Condition: Stable yaneth Diagnosis - Weakness yaneth - UTI/ Urinary tract infection, site not specified yaneth - Dysuria yaneth - Adverse effect of other viral vaccines, initial encounter yaneth Followup: yaneth - With: David Fam MD - When: 2 - 3 days - Reason: Recheck today's complaints, Continuance of care, Re-evaluation by your physician Followup: yaneth - With: Mook Woods MD - When: 2 - 3 days - Reason: Recheck today's complaints, Re-evaluation by your physician Discharge Instructions: - Discharge Summary Sheet yaneth - Dysuria yaneth - Urinary Tract Infection, Adult yaneth - Weakness yaneth - Fatigue yaneth - Urinary Tract Infection, Adult, Sins-[id number]-[id number] yaneth - Weakness, Dupy-sz-Tgcw yaneth - Aspirin and Your Heart yaneth Forms: - Medication Reconciliation Form yaneth - Thank You Letter yaneth - Antibiotic Education yaneth - Prescription Opioid Use yaneth Prescriptions: - Folic Acid 1 mg Oral Tablet - take 1 tablet by ORAL route once daily; 30 tablet; Refills: 0, Product yaneth Selection Permitted - levofloxacin 250 mg Oral Tablet - take 1 tablet by ORAL route once daily; 7 tablet; Refills: 0, Product Selection [facility] Permitted - Meclizine 25 mg Oral Tablet - take 1 tablet by ORAL route every 8 hours As needed; 30 tablet; Refills: 0, [facility] Product Selection Permitted NIH Stroke Scale - NIH Stroke Score Date: 08/19/2022 Time: 15:17 Total Score = 0 1a. Level of Consciousness (LOC) - 0(Alert) 1b. Level of Consciousness (LOC) (Month \T\ Age) - 0(Both) 1c. LOC Commands (Open \T\ Closes Eyes/Finishing And Shipping Supervisor) - 0(Both) 2. Best Gaze (Lateral Gaze Paresis) - 0(Normal) 3. Visual Field Loss - 0(No visual loss) 4. Facial Palsy - 0(Normal) 5a. Left Arm: Motor (10-second hold) - 0(No drift) 5b. Right Arm: Motor (10-second hold) - 0(No drift) 6a. Left Leg: Motor (5-second hold - always test supine) - 0(No drift) 6b. Right Leg: Motor (5-second hold - always test supine) - 0(No drift) 7. Limb Ataxia (finger/nose \T\ heel/young - test with eyes open) - 0(Absent) 8. Sensory Loss (pinprick arms/legs/face) - 0(Normal) 9. Best Language: Aphasia (description/naming/reading) - 0(No aphasia) 10. Dysarthria (speech clarity - read or repeat words) - 0(Normal) 11. Extinction and Inattention (visual/tactile/auditory/spatial/personal) - 0(No abnormality) Initials: [facility] Signatures: Dispatcher [employer] [facility] Micha Haney MD MD cha Williams, Irene, RN Yoly Rodriguez, RN BENJA db
--- NOTE | 2022-08-19 15:37 | ER ---
Nurse's Notes [facility] Name: Jaimie Gutierrez Age: 87 yrs Sex: Female : 1935 Arrival Date: 08/19/2022 Time: 10:02 Bed 13 Private MD: David Fam E Diagnosis: Weakness;UTI/ Urinary tract infection, site not specified;Dysuria;Adverse effect of other viral vaccines, initial encounter Presentation: 08/19 10:28 Chief complaint: Patient states: flu shot yesterday 1500 in left deltoid, after that I iw started feeling bad and whoozy. I have a lot of pressure in my head and I have been unbalanced. Coronavirus screen: Vaccine status: Patient reports receiving the 2nd dose of the covid vaccine. Client denies travel out of the [place] in the last 14 days. Ebola Screen: Patient negative for fever greater than or equal to 101.5 degrees Fahrenheit, and additional compatible Ebola Virus Disease symptoms Patient denies exposure to infectious person. Patient denies travel to an Ebola-affected area in the 21 days before illness onset. Initial Sepsis Screen: Does the patient meet any 2 criteria? No. Patient's initial sepsis screen is negative. Does the patient have a suspected source of infection? No. Patient's initial sepsis screen is negative. Risk Assessment: Do you want to hurt yourself or someone else? Patient reports no desire to harm self or others. Onset of symptoms was August 18, 2022. 10:28 Method Of Arrival: Ambulatory iw 10:28 Acuity: ALLISON 3 iw Triage Assessment: 10:31 General: Appears in no apparent distress. slender, well groomed, well developed, well iw nourished, Behavior is calm, cooperative, appropriate for age. Pain: Complains of pain in head. Historical: - Allergies: 10:31 PENICILLINS; iw 10:31 Codeine; iw - PMHx: 10:31 High Cholesterol; Hypertension; iw - Immunization history:: Adult Immunizations up to date. - Social history:: Smoking status: Patient denies any tobacco usage or history of. Screenin:12 Abuse screen: Denies threats or abuse. Denies injuries from another. Nutritional db screening: No deficits noted. Tuberculosis screening: No symptoms or risk factors identified. Fall Risk None identified. No fall in past 12 months (0 pts). No secondary diagnosis (0 pts). IV access (20 points). Ambulatory Aid- None/Bed Rest/Nurse Assist (0 pts). Gait- Normal/Bed Rest/Wheelchair (0 pts) Mental Status- Oriented to own ability (0 pts). Total Leo Fall Scale indicates No Risk (0-24 pts). Assessment: 11:12 Reassessment: Patient appears in no apparent distress at this time. No changes from db previously documented assessment. Patient is alert, oriented x 3, equal unlabored respirations, skin warm/dry/pink. Patient denies pain at this time. Reassessment: Patient states began feeling sick yesterday after taking Flu vaccine. States had nausea vomiting and headache yesterday. This AM ate breakfast but did not feeling like drinking anything. Appears in NAD. General: Appears in no apparent distress. comfortable, Behavior is calm, cooperative, appropriate for age, quiet. Pain: Denies pain. Neuro: No deficits noted. Level of Consciousness is awake, alert, obeys commands, Oriented to person, place, time, situation, Appropriate for age Speech is normal, Facial symmetry appears normal, Pupils are PERRLA. Cardiovascular: No deficits noted. Cardiovascular: Denies chest pain. Respiratory: No deficits noted. GI: No deficits noted. Abdomen is flat, Reports nausea, vomiting, since yesterday. : No deficits noted. No signs and/or symptoms were reported regarding the genitourinary system. EENT: No deficits noted. No signs and/or symptoms were reported regarding the EENT system. Derm: No deficits noted. No signs and/or symptoms reported regarding the dermatologic system. Musculoskeletal: No deficits noted. No signs and/or symptoms reported regarding the musculoskeletal system. 11:23 Reassessment: Instructed patient on clean catch. Patient verbalized understanding and db states will notify RN. 16:09 Reassessment: Patient appears in no apparent distress at this time. Patient and/or iw family updated on plan of care and expected duration. Pain level reassessed. Patient is alert, oriented x 3, equal unlabored respirations, skin warm/dry/pink. Patient states feeling better. Patient states symptoms have improved. Vital Signs: 10:28 BP 173 / 62; Pulse 74; Resp 16; Temp 98.8; Pulse Ox 100% ; Weight 63.5 kg; Height 5 ft. iw 5 in. (165.10 cm); Pain 8/10; 11:30 BP 157 / 48; Pulse 60; Resp 16; Pulse Ox 100% ; db 12:00 BP 147 / 47; Pulse 57; Resp 16; Pulse Ox 100% on R/A; db 13:04 BP 134 / 58; Pulse 60; Resp 16; Pulse Ox 100% ; db 16:07 BP 152 / 51; Pulse 78; Resp 16; Pulse Ox 98% on R/A; iw 10:28 Body Mass Index 23.30 (63.50 kg, 165.10 cm) iw Banner Coma Score: 15:20 Eye Response: spontaneous(4). Verbal Response: oriented(5). Motor Response: obeys yaneth commands(6). Total: 15. NIH Stroke Scale Scores: 15:17 NIHSS Score: 0 [facility] ED Course: 10:02 Patient arrived in ED. am2 10:02 David Fam MD is Private Physician. am2 10:31 Triage completed. iw 10:31 Arm band placed on right wrist. iw 10:37 Micha Haney MD is Attending Physician. yaneth 10:40 Yoly Kamara RN is Primary Nurse. db 11:12 Resting quietly. db 11:12 Patient has correct armband on for positive identification. Placed in gown. Bed in low db position. Call light in reach. Side rails up X 1. Client placed on continuous cardiac and pulse oximetry monitoring. NIBP monitoring applied. Door closed. Noise minimized. Lights dimmed. Warm blanket given. 11:12 Inserted saline lock: 20 gauge in right antecubital area, using aseptic technique. db Blood collected. 11:28 XRAY Chest (1 view) In Process Unspecified. EDMS 15:33 David Fam MD is Referral Physician. yaneth 15:33 Mook Woods MD is Referral Physician. yaneth 16:08 No provider procedures requiring assistance completed. IV discontinued, intact, iw bleeding controlled, No redness/swelling at site. Pressure dressing applied. Administered Medications: 11:20 Drug: NS 0.9% 500 ml Route: IV; Rate: bolus; Site: right antecubital; db 11:58 Follow up: IV Status: Completed infusion; IV Intake: 500ml db 11:59 Follow up: Response: No adverse reaction db 13:20 Follow up: Response: No adverse reaction db 11:58 Drug: NS 0.9% 1000 ml Route: IV; Rate: 125 ml/hr; Site: right antecubital; db 16:10 Follow up: IV Status: Order to discontinue infusion iw 13:30 Drug: Rocephin (cefTRIAXone) 1 grams Route: IV; Rate: per protocol; Site: right db antecubital; 14:05 Follow up: Response: No adverse reaction; IV Status: Completed infusion; IV Intake: 50mldb 13:30 Drug: LevOfloxacin 500 mg Route: PO; db 14:05 Follow up: Response: No adverse reaction db 15:21 Drug: Aspirin Chewable Tablet 324 mg Route: PO; db 16:09 Follow up: Response: No adverse reaction iw 15:21 Drug: foLIC Acid 1 mg Route: IVPB; Site: right antecubital; db 16:09 Follow up: IV Status: Completed infusion iw Medication: 11:12 VIS not applicable for this client. db Intake: 11:58 IV: 500ml; Total: 500ml. db 14:05 IV: 50ml; Total: 550ml. db Outcome: 15:36 Discharge ordered by . yaneth 16:08 Discharged to home ambulatory. iw 16:08 Condition: good 16:08 Discharge instructions given to patient, family, Instructed on discharge instructions, follow up and referral plans. medication usage, Demonstrated understanding of instructions, follow-up care, medications, Prescriptions given X 3. 16:10 Patient left the ED. iw NIH Stroke Scale - NIH Stroke Score Date: 08/19/2022 Time: 15:17 Total Score = 0 1a. Level of Consciousness (LOC) - 0(Alert) 1b. Level of Consciousness (LOC) (Month \T\ Age) - 0(Both) 1c. LOC Commands (Open \T\ Closes Eyes/Advanced Manufacturing Vice President) - 0(Both) 2. Best Gaze (Lateral Gaze Paresis) - 0(Normal) 3. Visual Field Loss - 0(No visual loss) 4. Facial Palsy - 0(Normal) 5a. Left Arm: Motor (10-second hold) - 0(No drift) 5b. Right Arm: Motor (10-second hold) - 0(No drift) 6a. Left Leg: Motor (5-second hold - always test supine) - 0(No drift) 6b. Right Leg: Motor (5-second hold - always test supine) - 0(No drift) 7. Limb Ataxia (finger/nose \T\ heel/young - test with eyes open) - 0(Absent) 8. Sensory Loss (pinprick arms/legs/face) - 0(Normal) 9. Best Language: Aphasia (description/naming/reading) - 0(No aphasia) 10. Dysarthria (speech clarity - read or repeat words) - 0(Normal) 11. Extinction and Inattention (visual/tactile/auditory/spatial/personal) - 0(No abnormality) Initials: yaneth Addendum: 08/21/2022 07:09 Addendum: Culture Results: Positive urine culture. No further action required. eb Bacteria sensitive to prescribed antibiotic. Signatures: Dispatcher [employer] EDMicha Olivas MD MD cha Williams, Irene, RN Mehreen Wilkinson Elizabeth eb Benton, Danielle, RN RN db
[2022-08-19 16:14] VITALS: TEMP 98.8
[2022-08-19 16:19] VITALS: BP 152/51; O2SAT 98
--- NOTE | 2022-08-22 18:45 | EKG ---
Test Date: 2022-08-19 Test Time: 11:09:09 Litigation Partner: SATHYA MEASUREMENT RESULTS: Intervals: Rate: 64 AR: 192 QRSD: 118 QT: 408 QTc: 420 [place]: P: 101 AR: 192 QRS: 29 T: 14 INTERPRETIVE STATEMENTS: Normal sinus rhythm Right bundle branch block Abnormal ECG Compared to ECG 07/08/2020 18:46:05 Right bundle-branch block now present Sinus arrhythmia no longer present Incomplete right bundle-branch block no longer present Electronically Signed On 08-22-22 18:39:39 CDT by Xander Friedman
== END 2022-08-19 16:10 | disposition home or self-care (01) ==
LOC: ER 10:00
DX: R53.1 Weakness (principal); N39.0 Urinary tract infection, site not specified; R30.0 Dysuria; T88.1XXA Other complications following immunization, not elsewhere classified, initial encounter; Z88.0 Allergy status to penicillin; Z88.6 Allergy status to analgesic agent; I10 Essential (primary) hypertension; E78.00 Pure hypercholesterolemia, unspecified
CPT/HCPCS: 96365; 96367; 96361; 93005; 87088; 85025; 87086; 80048; 36415; 83735; 85610; 80076; 87077; 87186; 84484; 83690; 83880; 70450; 76377; 74176; 71045; 99284; J7030; 81003; 81015

== ENCOUNTER 2023-08-25 12:58 | Inpatient (IN) | payer MEDICARE ==
--- OUTSIDE RECORDS SUMMARY | 2023-08-25 13:02 | XMS REPORT | Continuity of Care Document ---
:1935 Author Organization [facility] t Address [address] [address] Care Team Providers Name Role Phone David Fam Attending Clinician Unavailable Ileandro_S Attending Clinician Unavailable Lilo Chang Attending Clinician Tate_K Attending Clinician Unavailable OW_T Attending Clinician Unavailable Feliebrto Beebe Attending Clinician Josefa-Maiteayo_A_AH Attending Clinician Unavailable David Fam Admitting Clinician Unavailable Iyanoye_S Admitting Clinician Unavailable Czerprakash_K Admitting Clinician Unavailable OWENS_T Admitting Clinician Unavailable Josefa-Mbayo_A_AH Admitting Clinician Unavailable Payers Payer Name Policy Type Policy Number Effective Date Expiration Date giovanna [id number] 2021 (MEDICARE 00:00:00 REPLACEMENT HMO) [facility] [place] - [id number] [facility] (MEDICARE 00:00:00 REPLACEMENT/[employer] GE - HMO) Problems This patient has no known problems. Allergies, Adverse Reactions, Alerts This patient has no known allergies or adverse reactions. Medications This patient has no known medications. Procedures This patient has no known procedures. Encounters Start End Encounter Admission Attending Care Care Encounter Source Date/Time Date/Time Type Type Clinicians Facility Department ID 2023-02-23 Outpatient Fam, [facility] [id number] Common 11:15:01 David Brown27 [facility] 2023-02-15 Outpatient Fam, [facility] [id number] Common 16:21:00 David Brown19 [facility] 2023-02-10 Outpatient Fam, [facility] [id number] Common 10:50:00 David [id number] [facility] 2022-05-10 [facility]patient [facility], [facility] [id number] Common 14:03:01 David [id number] [facility] 2023-08-24 2023-08-24 [place] [id number] [facility] 00:00:00 00:00:00 [id number] [facility] 2023-02-27 2023-02-27 CAV Sera [id number]. [id number]. [facility] [id number] [facility] 15:00:00 16:00:00 Iyanoye [id number] [facility] [id number] 2023-02-10 2023-02-10 [place]oy[place] [id number] [facility] 00:00:00 00:00:00 [id number] [facility] 2023-02-10 2023-02-10 Outpatient Iyanoye_S DMG DMG [id number] [facility] 00:00:00 00:00:00 [id number] [facility] 2022-09-30 2022-09-30 Outpatient Czerwinski_ DM[facility] 108 [facility] 00:00:00 00:00:00 K [id number] [facility] 2022-09-19 2022-09-19 Outpatient OWENS_T DMG [facility] [id number] [facility] 00:00:00 00:00:00 [id number] [facility] 2022-06-06 2022-06-06 CAV Tomora [id number]. [id number]. [facility] [id number] [facility] 18:00:00 19:00:00 Beebe [id number] [facility] Medical [id number] 2022-05-25 2022-05-25 Outpatient DMG DMG [id number] [facility] 00:00:00 00:00:00 [id number] [facility] 2022-05-13 2022-05-13 Outpatient DMG DM [id number] [facility] 03:15:00 03:15:00 [facility] l Group 2021-12-31 2021-12-31 Outpatient DMG DM [id number] [facility] 09:01:00 09:01:00 [facility] l Group 2021-12-27 2021-12-27 Outpatient DMG DM [id number] [facility] 09:01:00 09:01:00 Med[facility] l Group 2019-12-18 2019-12-18 Outpatient Josefa-Mbayo VFP VFP [id number] [facility] 07:24:00 07:24:00 _A_AH [id number] Family Practic e 2019-12-18 2019-12-18 Outpatient Josefa-Mbayo VFP VFP [id number] [facility] 07:24:00 07:24:00 _A_AH [id number] Family Practic e 2019-12-18 2019-12-18 Outpatient Josefa-Mbayo VFP VFP [id number] [facility] 07:24:00 07:24:00 _A_AH [id number] Family Practic e 2019-12-18 2019-12-18 Outpatient Josefa-Mbayo VFP VFP [phone] [facility] 07:24:00 07:24:00 _A_AH [id number] Family Practic e Results This patient has no known results.
[2023-08-25] MEDS ORDERED: NA CHLORIDE 0.9% 1,000 ML ONE (13:34)
[2023-08-25] MEDS ORDERED: CEFTRIAXONE 1000 MG/VIAL ONE (13:34)
[2023-08-25] MEDS ORDERED: NA CHLORIDE 0.9% 100 ML ONE (13:37)
[2023-08-25] MEDS ORDERED: Meropenem 1000 MG/VIAL IV ONE (13:37)
[2023-08-25 13:56] LABS: Specific Gravity 1.019 (1.005-1.030); Urine Bacteria None Seen /HPF (<20); Urine Bilirubin NEGATIVE (Negative); Urine Blood 1+ (Negative); Urine Clarity Turbid (Clear); Urine Color Yellow (Yellow); Urine Glucose NEGATIVE (Negative); Urine Protein NEGATIVE (Negative); Urine Urobilinogen Normal (Normal)
--- NOTE | 2023-08-25 15:11 | EDPHYS ---
Physician Documentation [facility] Name: Jaimie Gutierrez Age: 88 yrs Sex: Female : 1935 Arrival Date: 08/25/2023 Time: 12:58 Bed 12 Private MD: ED Physician Micha Haney HPI: 08/25 15:02 This 88 yrs old Female presents to ER via Ambulatory with complaints of yaneth Urinary Problem, Pain With Urination. 15:02 The patient presents with urinary symptoms, dysuria, frequency, hesitancy, urgency. yaneth Onset: The symptoms/episode began/occurred 5 day(s) ago. Modifying factors: The symptoms are alleviated by nothing, the symptoms are aggravated by urinating. Associated signs and symptoms: Pertinent positives: cramping. Severity of symptoms: At their worst the symptoms were moderate, in the emergency department the symptoms are unchanged. The patient is not sexually active. The patient has experienced similar episodes in the past, several times. Historical: - Allergies: 13:25 Codeine; tm6 13:25 PENICILLINS; tm6 - PMHx: 13:25 Hypertension; High Cholesterol; tm6 - Immunization history:: Adult Immunizations up to date. - Social history:: Smoking status: Patient denies any tobacco usage or history of. Patient/guardian denies using alcohol. ROS: 15:03 Constitutional: Negative for fever, chills, and weight loss, Eyes: Negative for injury, yaneth pain, redness, and discharge, ENT: Negative for injury, pain, and discharge, Neck: Negative for injury, pain, and swelling, Cardiovascular: Negative for chest pain, palpitations, and edema, Respiratory: Negative for shortness of breath, cough, wheezing, and pleuritic chest pain, Back: Negative for injury and pain, : Negative for injury, bleeding, discharge, and swelling, MS/Extremity: Negative for injury and deformity, Skin: Negative for injury, rash, and discoloration, Neuro: Negative for headache, weakness, numbness, tingling, and seizure, Psych: Negative for depression, anxiety, suicide ideation, homicidal ideation, and hallucinations, Allergy/Immunology: Negative for hives, rash, and allergies, Endocrine: Negative for neck swelling, polydipsia, polyuria, polyphagia, and marked weight changes, Hematologic/Lymphatic: Negative for swollen nodes, abnormal bleeding, and unusual bruising, 15:03 Abdomen/GI: Positive for abdominal pain, of the suprapubic area, right lower quadrant and left lower quadrant, Exam: 15:03 Constitutional: This is a well developed, well nourished patient who is awake, alert, yaneth and in no acute distress. Head/Face: Normocephalic, atraumatic. Eyes: Pupils equal round and reactive to light, extra-ocular motions intact. Lids and lashes normal. Conjunctiva and sclera are non-icteric and not injected. Cornea within normal limits. Periorbital areas with no swelling, redness, or edema. ENT: Nares patent. No nasal discharge, no septal abnormalities noted. Tympanic membranes are normal and external auditory canals are clear. Oropharynx with no redness, swelling, or masses, exudates, or evidence of obstruction, uvula midline. Mucous membranes moist. Neck: Trachea midline, no thyromegaly or masses palpated, and no cervical lymphadenopathy. Supple, full range of motion without nuchal rigidity, or vertebral point tenderness. No Meningismus. Chest/axilla: Normal chest wall appearance and motion. Nontender with no deformity. No lesions are appreciated. Cardiovascular: Regular rate and rhythm with a normal S1 and S2. No gallops, murmurs, or rubs. Normal PMI, no JVD. No pulse deficits. Respiratory: Lungs have equal breath sounds bilaterally, clear to auscultation and percussion. No rales, rhonchi or wheezes noted. No increased work of breathing, no retractions or nasal flaring. Back: No spinal tenderness. No costovertebral tenderness. Full range of motion. Skin: Warm, dry with normal turgor. Normal color with no rashes, no lesions, and no evidence of cellulitis. MS/ Extremity: Pulses equal, no cyanosis. Neurovascular intact. Full, normal range of motion. Neuro: Awake and alert, GCS 15, oriented to person, place, time, and situation. Cranial nerves II-XII grossly intact. Motor strength 5/5 in all extremities. Sensory grossly intact. Cerebellar exam normal. Normal gait. Psych: Awake, alert, with orientation to person, place and time. Behavior, mood, and affect are within normal limits. 15:03 Abdomen/GI: Inspection: abdomen appears normal, Bowel sounds: normal, Palpation: mild abdominal tenderness, in the suprapubic area, right lower quadrant and left lower quadrant, Liver: no appreciated palpable abnormalities, Hernia: not appreciated, Vital Signs: 13:27 BP 148 / 70; Pulse 76; Resp 17; Temp 98.4(TE); Pulse Ox 99% on R/A; Weight 60.78 kg; tm6 Height 5 ft. 5 in. ; Pain 0/10; 13:28 BP 148 / 70; Pulse 74; Resp 17; Pulse Ox 100% on R/A; tm6 13:27 Body Mass Index 22.30 (60.78 kg, 165.1 cm) tm6 13:27 Pain Scale: Adult tm6 MDM: 13:03 Patient medically screened. [facility] 15:05 Differential diagnosis: kidney stone, nonspecific abdominal pain, diverticulitis, yaneth gastritis, non-specific abd pain, pancreatitis, Ureterolithiasis, urinary tract infection. Data reviewed: vital signs, nurses notes, lab test result(s). Consideration of Admission/Observation Patient was admitted/placed on observation. Escalation of care including admission/observation considered. Management of patient was discussed with the following: Hospitalist: thanh james. I considered the following discharge prescriptions or medication management in the emergency department Medications were administered in the Emergency Department. See MAR. Independent interpretation of the following test(s) in the Emergency Department CT Scan: My interpretation is refused by patient. Test considered but Not performed: EKG: no ekg. Historians other than the Patient: Friend: friend well informed. Care significantly affected by the following chronic conditions: Hypertension. Counseling: I had a detailed discussion with the patient and/or guardian regarding the historical points, exam findings, and any diagnostic results supporting the discharge/admit diagnosis, lab results, the need for further work-up and treatment in the hospital. 08/25 13:05 Order name: CBC with Diff [facility] 08/25 13:05 Order name: Comprehensive Metabolic Panel [facility] 08/25 13:05 Order name: Urinalysis w/ reflexes; Complete Time: 14:56 [facility] 08/25 13:05 Order name: Urine Culture [facility] 08/25 15:45 Order name: Blood Culture Adult (2) la1 08/25 15:45 Order name: Lactate w/ 2H reflex if indic. hi1 08/25 19:44 Order name: CBC with Automated Diff [facility] 08/25 19:44 Order name: CBC with Automated Diff [facility] 08/25 19:44 Order name: Comprehensive Metabolic Panel [facility] 08/25 19:44 Order name: Comprehensive Metabolic Panel EDMS Administered Medications: 13:21 Not Given (Duplicate Order): rocephin1 grams IV at per protocol once; Given slow IV yaneth push per pharmacy instructions 13:36 Drug: NS 0.9% IV 500 ml IV at bolus once Route: IV; Rate: bolus; Site: left antecubital;ld1 20:07 Follow up: Response: No adverse reaction; IV Status: Completed infusion kd3 13:36 Drug: Meropenem IV 1 grams IV at per protocol once; (mix in NS 100 mL) Route: IV; Rate: ld1 per protocol; Site: left antecubital; 20:07 Follow up: Response: No adverse reaction; IV Status: Completed infusion kd3 Disposition Summary: 08/25/23 15:10 Hospitalization Ordered Notes: Hospitalization Status: Inpatient Admission yaneth Provider: Christos Mendoza yaneth Condition: Stable yaneth Problem: new yaneth Symptoms: have improved yaneth Bed/Room Type: Standard yaneth Location: Telemetry/MedSurg (Inpatient)(08/25/23 19:58) cg Room Assignment: 218(08/25/23 20:30) cg Diagnosis - UTI/ Urinary tract infection, site not specified - ESBL yaneth - Abdominal tenderness yaneth - Dysuria - INTRACTABLE yaneth Forms: - Medication Reconciliation Form yaneth - SBAR form yaneth - Leadership Thank You Letter yaneth Signatures: Dispatcher [employer] EDMS Micha Haney MD MD cha Garcia, Cindy RN RN Stella Davis RN RN ld1 Chely Rodrigez RN RN tm6 Licha Sterling RN kd3 Corrections: (The following items were deleted from the chart) 13:26 13:05 Stone Protocol+CT.RAD.BRZ ordered. EDMS EDMS 13:33 13:21 Stone Protocol+CT.RAD.BRZ ordered. EDMS EDMS 19:47 15:10 Telemetry/MedSurg (Inpatient) yaneth cg 19:47 15:10 yaneth cg 19:58 19:47 [facility] ER HOLD cg cg 19:58 19:47 ERHOLD- cg cg 20:14 19:58 cg cg 20:30 20:14 205 cg cg
--- NOTE | 2023-08-25 15:11 | ER ---
Nurse's Notes [facility] Name: Jaimie Gutierrez Age: 88 yrs Sex: Female : 1935 Arrival Date: 08/25/2023 Time: 12:58 Bed 12 Private MD: Diagnosis: UTI/ Urinary tract infection, site not specified-ESBL;Abdominal tenderness;Dysuria-INTRACTABLE Presentation: 08/25 13:18 Chief complaint: Patient states: possible UTI, burning upon urination. Coronavirus tm6 screen: Vaccine status: Patient reports receiving the 2nd dose of the covid vaccine. Client denies travel out of the [place] in the last 14 days. Client indicates they have traveled out of the [place] in the last 14 days. At this time, unable to obtain information related to travel outside the [place] Ebola Screen: Patient negative for fever greater than or equal to 101.5 degrees Fahrenheit, and additional compatible Ebola Virus Disease symptoms Patient denies exposure to infectious person. Patient denies travel to an Ebola-affected area in the 21 days before illness onset. No symptoms or risks identified at this time. Risk Assessment: Do you want to hurt yourself or someone else? Patient reports no desire to harm self or others. Onset of symptoms was August 18, 2024. 13:18 Method Of Arrival: Ambulatory tm6 13:18 Acuity: ALLISON 3 tm6 13:28 Initial Sepsis Screen: Does the patient meet any 2 criteria? No. Patient's initial tm6 sepsis screen is negative. Does the patient have a suspected source of infection? No. Patient's initial sepsis screen is negative. Triage Assessment: 13:25 General: Appears in no apparent distress. Behavior is calm, cooperative. Pain: tm6 Complains of pain in pelvis Aggravated by urination. Neuro: Level of Consciousness is awake, alert, obeys commands, Oriented to person, place, time, situation, Appropriate for age. Respiratory: Airway is patent Respiratory effort is even, unlabored, Respiratory pattern is regular, symmetrical. Historical: - Allergies: 13:25 Codeine; tm6 13:25 PENICILLINS; tm6 - PMHx: 13:25 Hypertension; High Cholesterol; tm6 - Immunization history:: Adult Immunizations up to date. - Social history:: Smoking status: Patient denies any tobacco usage or history of. Patient/guardian denies using alcohol. Screenin:05 [facility] ED Fall Risk Assessment (Adult) History of falling in the last 3 months, kd3 including since admission No falls in past 3 months (0 pts) Confusion or Disorientation No (0 pts) Intoxicated or Sedated No (0 pts) Impaired Gait No (0 pts) Mobility Assist Device Used No (0 pt) Altered Elimination No (0 pt) Score/Fall Risk Level 0 - 2 = Low Risk Maintained a safe environment. Abuse screen: Denies threats or abuse. Denies injuries from another. Nutritional screening: No deficits noted. Tuberculosis screening: No symptoms or risk factors identified. Assessment: 20:52 General: Appears in no apparent distress. Behavior is calm, cooperative. Neuro: Level kd3 of Consciousness is awake, alert, obeys commands, Oriented to person, place, time, situation. Vital Signs: 13:27 BP 148 / 70; Pulse 76; Resp 17; Temp 98.4(TE); Pulse Ox 99% on R/A; Weight 60.78 kg; tm6 Height 5 ft. 5 in. ; Pain 0/10; 13:28 BP 148 / 70; Pulse 74; Resp 17; Pulse Ox 100% on R/A; tm6 13:27 Body Mass Index 22.30 (60.78 kg, 165.1 cm) tm6 13:27 Pain Scale: Adult tm6 ED Course: 13:00 Patient arrived in ED. ts1 13:03 Micha Haney MD is Attending Physician. yaneth 13:21 Inserted saline lock: 20 gauge in right antecubital area, using aseptic technique. bc6 13:25 Triage completed. tm6 13:26 Urine Culture Sent. bc6 13:26 Urinalysis w/ reflexes Sent. bc6 13:27 Arm band placed on right wrist. tm6 13:36 Comprehensive Metabolic Panel Sent. ld1 13:36 CBC with Diff Sent. ld1 15:10 Christos Mendoza MD is Hospitalizing Provider. [facility] 19:37 Licha Sterling RN is Primary Nurse. kd3 20:07 No provider procedures requiring assistance completed. Patient admitted, IV remains in kd3 place. 20:51 Provided Education on: . kd3 20:52 Patient has correct armband on for positive identification. kd3 Administered Medications: 13:21 Not Given (Duplicate Order): rocephin1 grams IV at per protocol once; Given slow IV yaneth push per pharmacy instructions 13:36 Drug: NS 0.9% IV 500 ml IV at bolus once Route: IV; Rate: bolus; Site: left antecubital;ld1 20:07 Follow up: Response: No adverse reaction; IV Status: Completed infusion kd3 13:36 Drug: Meropenem IV 1 grams IV at per protocol once; (mix in NS 100 mL) Route: IV; Rate: ld1 per protocol; Site: left antecubital; 20:07 Follow up: Response: No adverse reaction; IV Status: Completed infusion kd3 Medication: 20:07 VIS not applicable for this client. kd3 Outcome: 15:10 Decision to Hospitalize by Provider. yaneth 20:51 Admitted to Med/surg kd3 20:51 Condition: stable 20:51 Discharge instructions given to patient, family, Instructed on the need for admit, Demonstrated understanding of instructions, 20:58 Patient left the ED. kd3 Signatures: Micha Haney MD MD cha Sims, Lauren, RN RN ld1 Licha Sterling, RN RN kd3 Sun Hdez bc6 Zulma Crespo PAS PAS ts1 Chely Rodrigez, BENJA RN tm6
[2023-08-25] MEDS ORDERED: ACETAMINOPHEN 325 MG TABLET PO PRN (19:39)
[2023-08-25] MEDS ORDERED: ONDANSETRON 4 MG/2 ML VIAL IV PRN (19:39)
[2023-08-25 22:06] VITALS: BMI 22.6
[2023-08-25] MEDS: NA CHLORIDE 0.9% 1,000 ML IV SCH (22:26)
[2023-08-25 22:48] LABS: Absolute Lymphocytes (CBC) 1.4 K/uL (0.7-4.9); Hematocrit 28.7 % (36.0-45.0); Lymphocytes % 24.9 % (15.3-44.8); MCV 88.3 fL (80-100); Platelets 280 thou/uL (152-406); RBC Red Blood Cell Count 3.25 M/uL (3.86-4.86)
--- NOTE | 2023-08-25 22:49 | P.HP ---
Certification for Inpatient Patient admitted to: Inpatient With expected LOS: >2 Midnights Practitioner: I am a practitioner with admitting privileges, knowledge of patient current condition, hospital course, and medical plan of care. Services: Services provided to patient in accordance with Admission requirements found in Title 42 Section 412.3 of the Code of Federal Regulations Patient History Date of Service: 08/26/23 Reason for admission: Urinary tract infection, history of ESBL infection. History of Present Illness: 88-year-old female patient with past medical history significant for hypertension, hyperlipidemia and history of complicated urinary tract infection and urinary incontinence. She reported a history of incontinence of urine for long time and has gone to multiple physicians without significant relief of her symptoms. She recently had increase the lower abdomen discomfort and discolored urine output. she was brought to the emergency room for evaluation and management. In the ED she was started found to have significantly abnormal UA with concerns for urinary tract infection and because of her history of ESBL infection she was admitted for inpatient care. She denies nausea, vomiting, diarrhea. Allergies codeine Allergy (Severe, Verified 02/20/15 09:34) Nausea/Vomiting Penicillins Allergy (Severe, Verified 02/20/15 09:34) Itching/Hives/Rash Home Medications: Fenofibrate [Tricor*] 145 mg PO DAILY 08/25/23 Lisinopril [Zestril] 10 mg PO DAILY 08/25/23 Pantoprazole [Protonix Tab*] 40 mg PO DAILY 08/25/23 - Past Medical/Surgical History Diabetic: No -: Hyperlipidemia -: GERD with hiatal hernia -: Overactive bladder -: Small umbilical hernia -: Osteoarthritis of the knees -: Hysterectomy -: 2 lumps removed from rt breast Psychosocial/ Personal History: She is 55 years. She has 2 children. 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 - Family History Mother -: Heart disease - Social History Alcohol use: No CD- Drugs: No Caffeine use: No Review of Systems General: Weakness, Malaise Eyes: Unremarkable ENT: Unremarkable Respiratory: Unremarkable Cardiovascular: Unremarkable Gastrointestinal: Unremarkable Genitourinary: Frequency, As per HPI Musculoskeletal: Unremarkable Integumentary: Unremarkable Neurological: Unremarkable Physical Examination - Vital Signs Temperature: 98.4 F Blood Pressure: 148/70 Pulse: 74 Respirations: 17 Pulse Ox (%): 98 - Physical Exam General: Alert, Oriented x3 HEENT: Atraumatic, Normocephalic Neck: Supple Respiratory: Normal air movement Cardiovascular: Regular rate/rhythm, Normal S1 S2 Gastrointestinal: Soft and benign Musculoskeletal: No swelling Neurological: Normal speech, Normal strength at 5/5 x4 extr Assessment and Plan - Plan Urinary tract infection: UA is significantly concerning. Patient has a history of ESBL infection. Cultures have been obtained. We will start empiric antibiotic therapy with meropenem pending finalization of cultures. Adjust antibiotic therapy as needed. History of hypertension: Monitor vital signs per unit protocol and continue antihypertensive medication. Prophylaxis: Lovenox for DVT prophylaxis CODE STATUS: Full code Disposition: We will monitor cultures for finalization of antibiotic therapy and discharge home once plan of care is finalized. - Advance Directives Does patient have a Living Will: No Does patient have a Durable POA for Healthcare: No
[2023-08-25 23:08] LABS: Albumin 3.4 g/dL (3.4-5.0); Bilirubin Total 0.2 mg/dL (0.2-1.0); Potassium 3.9 mEq/L (3.5-5.1); Protein, Total 6.5 g/dL (6.4-8.2)
[2023-08-26] MEDS: Meropenem 1,000 MG in NA CHLORIDE 0.9% 100 ML IV SCH ×2 (01:16→15:10)
[2023-08-26] MEDS ORDERED: Meropenem 1,000 MG in NA CHLORIDE 0.9% 100 ML IV ONE (02:00)
[2023-08-26 04:51] LABS: Absolute Lymphocytes (CBC) 1.4 K/uL (0.7-4.9); Hematocrit 27.1 % (36.0-45.0); MCV 88.2 fL (80-100); MPV 8.6 fL (7.6-11.3); Platelets 237 thou/uL (152-406); RBC Red Blood Cell Count 3.08 M/uL (3.86-4.86)
[2023-08-26 05:16] LABS: Bilirubin Total 0.2 mg/dL (0.2-1.0); Protein, Total 5.6 g/dL (6.4-8.2)
[2023-08-26] MEDS: NA CHLORIDE 0.9% 1,000 ML IV SCH (05:53)
--- NOTE | 2023-08-26 09:17 | P.PN ---
Date of Service: 08/26/23 Subjective: Patient is alert and oriented x3 Denies any pain or discomfort Vital signs are stable Breathing normally on room air Review of Systems General: Weakness, Malaise Eyes: Unremarkable Respiratory: Unremarkable Cardiovascular: Denies chest pain, no edema Gastrointestinal: Unremarkable Genitourinary: Frequency, As per HPI Musculoskeletal: Unremarkable Integumentary: Unremarkable Neurological: Unremarkable Physical Examination - Vital Signs Temperature: 97.5 F Blood Pressure: 132/60 Pulse: 69 Respirations: 17 Pulse Ox (%): 97% - Physical Exam General: Alert, Oriented x3 HEENT: Atraumatic, Normocephalic Neck: Supple Respiratory: Normal air movement Cardiovascular: Regular rate/rhythm, Normal S1 S2 Gastrointestinal: Soft and benign Musculoskeletal: No swelling Neurological: Normal speech, Normal strength at 5/5 x4 extr Assessment and Plan - Plan Urinary tract infection: History of ESBL infection. Hypertension Hypertension Hyperlipidemia GERD Assessment and Plan Urinary tract infection: History of ESBL infection. * Acute on chronic urinary tract infection, patient was sent to the hospital by the PCP as the urine was growing ESBL * Patient with history of repeated UTIs and hospitalization related to UTI the last year * Patient also complains of urinary symptoms including frequency and dysuria for the last few weeks * Patient started on hydration, antibiotics (Merrem 1 g every 12 hours started on08/25/2023). * We will continue to monitor the labs and cultures pending * Today she denies any urinary symptoms Hypertension: * Chronic, controlled on lisinopril at home * We will continue the lisinopril * Will monitor blood pressure closely Hyperlipidemia: * Chronic controlled on fenofibrate * We will continue the home medication GERD * Chronic, controlled on pantoprazole * Will continue pantoprazole * Patient denies any GERD symptoms Prophylaxis: Lovenox for DVT prophylaxis CODE STATUS: Full code Diet Regular diet <Pascual Manrique - Last Filed: 08/26/23 14:42> Unclear on UTI states she has had chronic urinary symptoms -frequency, ?incontinence prescribed a "medication" that helped had routine follow up this past monday - denies h'aving any worsening urinary symptoms, no new symptoms, no pain, no fever UA and cultures obtained at that visit "for regular follow up"; started on Ciprofloxacin reportedly grew ESBL and was instructed on coming to ED for IV antibiotic set up and dc home same day Doing well in hospital, denies any change in symptoms, afebrile on merrem, awaiting urine culture <Christos Mendoza - Last Filed: 08/26/23 21:29>
[2023-08-26] MEDS: ENOXAPARIN 40 MG/0.4 ML SQ SCH (09:45)
[2023-08-26] MEDS: PANTOPRAZOLE 40MG TABLET PO SCH ×2 (09:45→09:46)
[2023-08-26] MEDS: lisinopriL 10 MG TAB PO SCH (09:45)
[2023-08-26] MEDS: FENOFIBRATE 160 MG TAB PO SCH (09:46)
[2023-08-27] MEDS: Meropenem 1,000 MG in NA CHLORIDE 0.9% 100 ML IV SCH ×2 (01:59→14:06)
[2023-08-27] MEDS: ENOXAPARIN 40 MG/0.4 ML SQ SCH (08:51)
[2023-08-27] MEDS: FENOFIBRATE 160 MG TAB PO SCH (08:51)
[2023-08-27] MEDS: lisinopriL 10 MG TAB PO SCH (08:52)
[2023-08-27] MEDS: PANTOPRAZOLE 40MG TABLET PO SCH (09:00)
--- NOTE | 2023-08-27 10:08 | P.PN ---
Date of Service: 08/27/23 Subjective: Patient is alert and oriented x3 Denies any pain or discomfort Vital signs are stable, blood pressure is trending high will continue to monitor. Breathing normally on room air Review of Systems General: Weakness, Malaise Eyes: Unremarkable Respiratory: Unremarkable Cardiovascular: Denies chest pain, no edema Gastrointestinal: Unremarkable Genitourinary: Frequency, As per HPI Musculoskeletal: Unremarkable Integumentary: Unremarkable Neurological: Unremarkable Physical Examination - Vital Signs Temperature: 97.4 Blood Pressure: 152/87 Pulse: 74 Respirations: 16 Pulse Ox (%): 98% - Physical Exam General: Alert, Oriented x3 HEENT: Atraumatic, Normocephalic Respiratory: Normal air movement Cardiovascular: Regular rate/rhythm, Normal S1 S2 Gastrointestinal: Soft and benign Musculoskeletal: No swelling Neurological: Normal speech, Normal strength at 5/5 x4 extr Assessment and Plan - Plan Urinary tract infection: History of ESBL infection. Hypertension Hypertension Hyperlipidemia GERD Assessment and Plan Urinary tract infection: History of ESBL infection. * Acute on chronic urinary tract infection, patient was sent to the hospital by the PCP as the urine was growing ESBL * Patient with history of repeated UTIs and hospitalization related to UTI the last year * Patient also complains of urinary symptoms including frequency and dysuria for the last few weeks * Patient started on hydration, antibiotics (Merrem 1 g every 12 hours started on08/25/2023). * We will continue to monitor the labs and cultures pending * Today she denies any urinary symptoms Hypertension: * Chronic, controlled on lisinopril at home * We will continue the lisinopril * Will monitor blood pressure closely Hyperlipidemia: * Chronic controlled on fenofibrate * We will continue the home medication GERD: * Chronic, controlled on pantoprazole * Will continue pantoprazole * Patient denies any GERD symptoms Prophylaxis: Lovenox for DVT prophylaxis CODE STATUS: Full code Diet Regular diet
[2023-08-27 22:31] VITALS: O2SAT 95
[2023-08-28] MEDS: Meropenem 1,000 MG in NA CHLORIDE 0.9% 100 ML IV SCH (01:18)
[2023-08-28 03:04] LABS: Potassium 3.9 mEq/L (3.5-5.1)
[2023-08-28 06:37] VITALS: TEMP 97.3
[2023-08-28] MEDS: lisinopriL 10 MG TAB PO SCH (08:35)
[2023-08-28] MEDS: ENOXAPARIN 40 MG/0.4 ML SQ SCH (08:36)
[2023-08-28] MEDS: FENOFIBRATE 160 MG TAB PO SCH (08:36)
[2023-08-28] MEDS: PANTOPRAZOLE 40MG TABLET PO SCH (08:36)
[2023-08-28 08:37] VITALS: BP 140/63
--- NOTE | 2023-08-28 09:02 | P.CNS ---
Date of Consult: 08/28/23 Reason for Consult: UTI, history of ESBL Chief Complaint: Urinary tract infection, history of ESBL infection. History of Present Illness: Patient is an 88-year-old female with a past medical history of overactive bladder, hyperlipidemia, GERD, recurrent UTI who presented to the ED with complaints of lower abdominal discomfort and discolored urine. She was referred to come to the ED by her PCP due to urine cultures growing E. coli ESBL. Patient was started on meropenem. infectious disease was consulted. Allergies codeine Allergy (Severe, Verified 02/20/15 09:34) Nausea/Vomiting Penicillins Allergy (Severe, Verified 02/20/15 09:34) Itching/Hives/Rash Home medications list reviewed: Yes Home Medications: Fenofibrate [Tricor*] 145 mg PO DAILY 08/25/23 Lisinopril [Zestril] 10 mg PO DAILY 08/25/23 Pantoprazole [Protonix Tab*] 40 mg PO DAILY 08/25/23 - Past Medical/Surgical History Diabetic: No -: Hyperlipidemia -: GERD with hiatal hernia -: Overactive bladder -: Small umbilical hernia -: Osteoarthritis of the knees -: Hysterectomy -: 2 lumps removed from rt breast Psychosocial/ Personal History: She is 55 years. She has 2 children. 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 - Family History Mother Medical History: Heart disease - Social History Smoking Status: Never smoker Alcohol use: No CD- Drugs: No Caffeine use: No Review of Systems Unremarkable Physical Examination Temp Pulse Resp BP Pulse Ox 97.3 F 70 15 140/63 95 08/28/23 04:00 08/28/23 08:35 08/28/23 04:00 08/28/23 08:35 08/28/23 04:00 General: Alert, In no apparent distress, Oriented x3 HEENT: Atraumatic, Normocephalic Respiratory: Clear to auscultation bilaterally, Normal air movement Cardiovascular: No edema, Normal pulses Gastrointestinal: Normal bowel sounds, Soft and benign Integumentary: No rashes Neurological: Normal speech, Normal tone, Normal affect Laboratory data -Reviewed Microbiology data -Reviewed Imagings Data: -Reviewed Conclusions/Impression: Problem list Acute Cystitis Hypertension Hyperlipidemia Gastroesophageal reflux disease Urinary tract infection, recurrent -Urine culture from PCP growing E. coli ESBL sensitive to Zosyn, gentamicin, and carbapenems -Urine culture 08/25: mixed josep; [place] count < 10,000 -Started on meropenem 08/26 No leukocytosis. Afebrile. Recommendations - Patient was seen by her PCP for urinary tract infection and she was started on empiric ciprofloxacin on 08/22. Her urine culture (collected on 08/22) results came back positive for E. coli ESBL, she was then referred to the ED by her PCP on 08/25 for IV antibiotic therapy. Patient denies any urinary symptoms. Urine culture 08/25 with colony count less than 10,000; mixed josep. - Continue meropenem for 3 days (started 08/26). Currently on day 3 of 3. - Follow up with urologist as outpatient Case discussed with Alton Martinez
--- NOTE | 2023-08-28 10:43 | P.DS ---
Admission Date: 08/25/23 Discharge Date: 08/28/23 Disposition: ROUTINE DISCHARGE Discharge Condition: GOOD Reason for Admission: Urinary tract infection, history of ESBL infection. Consultations: Infectious disease Brief History of Present Illness: 88-year-old female patient with past medical history significant for hypertension, hyperlipidemia and history of complicated urinary tract infection and urinary incontinence. She reported a history of incontinence of urine for long time and has gone to multiple physicians without significant relief of her symptoms. She recently had increase the lower abdomen discomfort and discolored urine output. she was brought to the emergency room for evaluation and management. In the ED she was started found to have significantly abnormal UA with concerns for urinary tract infection and because of her history of ESBL infection she was admitted for inpatient care. She denies nausea, vomiting, diarrhea. Hospital Course: Patient was admitted to the hospital for presumed ESBL E. coli urinary tract infection from outpatient urine culture. Blood and urine cultures were obtained, she was treated for 3 days with IV meropenem. Her blood and urine cultures returned negative at our facility. She received a full course of 3 days of IV meropenem here and will be discharged to follow-up with her primary care doctor with no new prescriptions or changes. She denies urinary symptoms. Vital Signs/Physical Exam: Temp Pulse Resp BP Pulse Ox 97.3 F 70 18 140/63 70 L 08/28/23 08:00 08/28/23 08:35 08/28/23 08:00 08/28/23 08:35 08/28/23 08:00 General: Alert, In no apparent distress, Oriented x3 HEENT: Atraumatic Neck: Supple, JVD not distended Respiratory: Clear to auscultation bilaterally Cardiovascular: Regular rate/rhythm, Normal S1 S2 Gastrointestinal: Normal bowel sounds, No tenderness Musculoskeletal: No tenderness Integumentary: No rashes Neurological: Normal speech, Normal tone, Normal affect Laboratory Data at Discharge: WBC 5.50 thou/uL (4.3-10.9) 08/26/23 04:20 Hgb 9.6 g/dL (12.0-15.0) L 08/26/23 04:20 Hct 27.1 % (36.0-45.0) L 08/26/23 04:20 Plt Count 237 thou/uL (152-406) 08/26/23 04:20 Sodium 141 mEq/L (136-145) 08/28/23 01:45 Potassium 3.9 mEq/L (3.5-5.1) 08/28/23 01:45 BUN 20 mg/dL (7-18) H 08/28/23 01:45 Creatinine 0.80 mg/dL (0.55-1.02) 08/28/23 01:45 Glucose 106 mg/dL (74-106) 08/28/23 01:45 Magnesium 2.0 mg/dL (1.6-2.4) 08/28/23 01:45 Total Bilirubin 0.2 mg/dL (0.2-1.0) 08/26/23 04:20 AST 12 U/L (15-37) L 08/26/23 04:20 ALT 14 U/L (13-56) 08/26/23 04:20 Alkaline Phosphatase 72 U/L (45-117) 08/26/23 04:20 Home Medications: Fenofibrate [Tricor*] 145 mg PO DAILY 08/25/23 Lisinopril [Zestril] 10 mg PO DAILY 08/25/23 Pantoprazole [Protonix Tab*] 40 mg PO DAILY 08/25/23 Physician Discharge Instructions: You were admitted to the hospital with concern for a urinary tract infection that was resistant to all oral antibiotics called E. coli ESBL. During your hospitalization you received the IV antibiotic meropenem for 3 days. The urine culture and blood cultures that were performed in the hospital did not show any sign of bacterial growth/UTI. You can safely be discharged home to follow-up with your primary care doctor. Continue your other home medications as prescribed. Diet: AHA Activity: Ad mason Followup: David Fam MD [Primary Care Provider] - 1-2 Weeks Time spent managing pt's care (in minutes): 35
== END 2023-08-28 11:45 | disposition home or self-care (01) | DRG 690 ==
LOC: ER 12:58 → ERHOLD 19:39 → 2ND 20:51
PROVIDERS: ADMIT Internal Medicine Nephrology; ATTEND Hospitalist
DX: N30.00 Acute cystitis without hematuria (principal); Z16.12 Extended spectrum beta lactamase (ESBL) resistance; Z16.20 Resistance to unspecified antibiotic; I10 Essential (primary) hypertension; M17.9 Osteoarthritis of knee, unspecified; E78.00 Pure hypercholesterolemia, unspecified; K21.9 Gastro-esophageal reflux disease without esophagitis; B96.20 Unspecified Escherichia coli [E. coli] as the cause of diseases classified elsewhere; Z88.5 Allergy status to narcotic agent; Z88.0 Allergy status to penicillin; Z79.899 Other long term (current) drug therapy; Z90.710 Acquired absence of both cervix and uterus
CPT/HCPCS: 36415; 80048; 80053; 81001; 83605; 83735; 85025; 87040; 87086; 87088; 96365; 96366; 99285; J0696; J1650; J2185; J7030